=== PATIENT | female | born 1945 | race African-American/Black ===

== ENCOUNTER 2018-08-10 18:42 | Inpatient (IN) | payer MEDICARE ==
[~2018-08-10 18:42] MED LIST: ISOVUE-370 76%-LOCM 1 ML ONE
[2018-08-10] MEDS ORDERED: Lidocaine Viscous Sol 2% 15 ml UD Cup ONE (19:50)
[2018-08-10] MEDS ORDERED: Benzocaine 20% Spray 60 ML CAN ONE (19:50)
[2018-08-10] MEDS ORDERED: Lidocaine 2% PF 5 ML VIAL ONE (19:50)
[2018-08-10] MEDS ORDERED: Lidocaine 1% (PF) 30 ML VIAL ONE (19:51)
[2018-08-10 19:52] LABS: Hemoglobin 12.2 g/dL (12.0-16.0); Mean Corpuscular HGB CONC 33.1 g/dL (32.0-36.0); Mean Corpuscular Hemoglobin 31.3 pg (27.0-31.0); Mean Corpuscular Volume 94.6 fL (78.0-98.0); Mean Platelet Volume 8.2 fL (7.4-10.4); Platelet Count 266 thou/uL (130-400); RBC Distribution Width 12.3 % (11.5-14.5); Red Blood Cell (RBC) Count 3.91 mill/uL (4.20-5.40); White Blood Cell (WBC) Count 6.4 thou/uL (4.8-10.8)
[2018-08-10 19:59] LABS: ALT (SGPT) 37 U/L (8-55); AST (SGOT) 25 U/L (5-34); Albumin 3.8 g/dL (3.4-4.8); Alkaline Phosphatase 102 U/L (40-150); Anion Gap 13 mmol/L (10-20); BUN (Urea Nitrogen) 15 mg/dL (9.8-20.1); Bilirubin, Total 0.5 mg/dL (0.2-1.2); CK (CPK) 43 U/L (29-168); Calc. Creatinine Clearance 0 mL/min (70-130); Calcium 10.9 mg/dL (7.8-10.44); Carbon Dioxide 19 mmol/L (23-31); Chloride 108 mmol/L (98-107); Estimated GFR-MDRD 55; Globulin 4.4 g/dL (2.4-3.5); Glucose 350 mg/dL (83-110); Potassium 4.4 mmol/L (3.5-5.1); Protein, Total 8.2 g/dL (6.0-8.3); Sodium 136 mmol/L (136-145)
[2018-08-10 20:02] LABS: Eosinophils 1 % (0-10); Lymphocytes 43 % (21-51); MDiff Complete? YES; Monocytes 3 % (0-10); Neutrophil 50 % (42-75); PLT Morphology Comment Appears Adequate; RBC Morphology Normal
[2018-08-10 20:03] LABS: CKMB 1.1 ng/mL (0-6.6); Troponin I 0.012 ng/mL (< 0.028)
--- NOTE | 2018-08-10 20:26 | RAD ---
PORTABLE AP CHEST X-RAY 08/10/18 HISTORY: Cough and shortness of breath worse at night. Dyspnea. Patient unable to lie flat. COMPARISON: 07/29/18. FINDINGS: The cardiac silhouette is magnified by projection, but stable in size. Parenchymal changes in left joesy ng base have improved from prior study which may be related to resolution of atelectasis or infiltrat e. There is slight blunting of the right lateral costophrenic angle suggesting a tiny right pleural e ffusion; however, there is mild patchy increased density at the lateral right lung base which could b e related to either atelectasis or developing pneumonia. The lungs are otherwise clear. Vascular calc ifications seen in the thoracic aorta. No other interval change. IMPRESSION: Small right pleural effusion with patchy density lateral right lung base which could be related to ei ther atelectasis or developing pneumonia. Followup PA and lateral chest x-ray is recommended. POS: [facility]
[2018-08-10] MEDS ORDERED: Furosemide 40 MG/4 ML VIAL ONE (20:37)
--- NOTE | 2018-08-10 21:42 | CT ---
CT ANGIOGRAM THORAX WITH IV CONTRAST AND 3D RECONSTRUCTIONS: 08/10/18 HISTORY: Chest pain and shortness of breath, cough. COMPARISON: None available. FINDINGS: No filling defects are seen in the pulmonary arteries to suggest a pulmonary embolus. Thoracic aorta is normal in caliber without evidence of an aortic dissection. Minimal vascular calcif ications are present. The heart is mildly enlarged. There is a moderate right and small left pleural effusions with associated passive atelectasis. The mild ground glass densities are seen in the lungs bilaterally, but this is obtained in expiratory pha se of imaging and findings are likely related to atelectasis. There is a hypodense lesion seen in the mid portion of the left kidney measuring 2.4 cm and demonstra polina fluid attenuation likely represents a cyst. There is a 1.1 cm fluid density exophytic lesion at t he superior pole left kidney. Remainder of the upper abdomen has a normal CT appearance. IMPRESSION: 1. Moderate right and small left pleural effusions with atelectasis seen bilaterally. 2. No CT evidence of a pulmonary embolus. 3. Mild cardiomegaly. 4. Left renal cyst. 5. Colonic diverticulosis involving the hepatic flexure. POS: [facility]
[2018-08-10 23:56] LABS: Troponin I 0.011 ng/mL (< 0.028)
[2018-08-10 23:58] VITALS: BMI 34.2
[2018-08-11] MEDS ORDERED: Dextrose 50% Abboject 50 ML SYRINGE SLOW IVP PRN (00:01)
[2018-08-11] MEDS ORDERED: Artificial Tears 18 DROP/0.9 ML EA EYE PRN (00:01)
[2018-08-11] MEDS ORDERED: Eucerin (Mineral Oil/Petrolatum,White) 30 gm Jar TOP PRN (00:01)
[2018-08-11] MEDS ORDERED: Senokot S 8.6-50 MG TAB PO PRN (00:01)
[2018-08-11] MEDS ORDERED: hydrALAZINE 20 MG/ML VIAL SLOW IVP PRN (00:01)
[2018-08-11] MEDS ORDERED: Loperamide HCl 2 MG CAP PO PRN (00:01)
[2018-08-11] MEDS ORDERED: Calcium Carbonate 500 MG ChewTAB PO PRN (00:01)
[2018-08-11] MEDS ORDERED: Bisacodyl 10 MG SUPP PR PRN (00:01)
[2018-08-11] MEDS ORDERED: Dextrose 5% in Water 1,000 ML IV PRN (00:01)
[2018-08-11] MEDS ORDERED: Ondansetron PF 4 MG/2 ML Vial IVP PRN (00:01)
[2018-08-11] MEDS ORDERED: Diabetic Tussin 200 MG/10 ML UDCUP PO PRN (00:01)
[2018-08-11] MEDS ORDERED: Acetaminophen 325 MG TAB PO PRN (00:01)
[2018-08-11] MEDS ORDERED: HYDROcodone/Acetaminophen 5/325 mg Tablet PO PRN (00:01)
[2018-08-11] MEDS ORDERED: HumaLOG 300 UNITS/3 ML VIAL SC PRN (00:01)
[2018-08-11] MEDS ORDERED: Ondansetron ODT 4 MG TAB PO PRN (00:01)
[2018-08-11] MEDS ORDERED: Zolpidem Tartrate 5 MG TAB PO PRN (00:01)
--- NOTE | 2018-08-11 01:36 | HP ---
PRIMARY CARE PHYSICIAN: [facility]. DATE OF SERVICE: 08/10/2018 REASON FOR ADMISSION: New-onset congestive heart failure, suspecting systolic. HISTORY OF PRESENT ILLNESS: A 73-year-old -[place] female who has underlying history of diab etes type 2 and hypertension, who presented to emergency room for evaluation of increasing shortness of breath. Patient does have shortness of breath on exertion. She does report orthopnea. Patient f eels comfortable in sitting up position. She does not give any classic history of PND. She denies a ny lower extremity edema, but patient reports that after walking a few distance, she gets out of kenia th which is pretty much new. She denies any palpitations, syncope. She does report vague chest disc omfort and tightness with exertion. She denies any fever or chills. She denies any upper or lower r espiratory infections. She denies any viral infection. She denies any NSAID abuse. She denies any weight gain. She denies any weight loss. She denies any thyroid related problems. As patient's symptoms was getting worse and that is what she was concerned about and decided to come to emergency room for evaluation. In the emergency room, patient had elevated D-dimer and that is why CT angiography was done, which wa s negative for pulmonary embolism. Her chest x-ray did show pleural effusion and atelectasis, cardio megaly. Patient routine blood tests showed elevated BNP. Patient was admitted to telemetry floor fo r new-onset congestive heart failure. Patient denies any UTI symptoms. She denies any constipation, diarrhea, melena, hematochezia. She d enies any headaches. She denies any focal motor symptoms. Patient denies any previous history of he art-related problem. REVIEW OF SYSTEMS: Please see my HPI for pertinent positive and negative. All other review of syste ms reviewed and negative except as mentioned in the HPI: Constitutional: Weight loss or gain, abili ty to conduct usual activities. Skin: Rash, itching. Eyes: Double vision, pain. ENT/Mouth: Nose bleeding, neck stiffness, pain, tenderness. Cardiovascular: Palpitations, dyspnea on exertion, ort hopnea. Respiratory: Shortness of breath, wheezing, cough, hemoptysis, fever, or night sweats. Gas trointestinal: Poor appetite, abdominal pain, heartburn, nausea, vomiting, constipation, or diarrhea . Genitourinary: Urgency, frequency, dysuria, nocturia. Musculoskeletal: Pain, swelling. Neurolo gic/Psychiatric: Anxiety, depression. Allergy/Immunologic: Skin rash, bleeding tendency. ALLERGIES: No known drug allergy. CURRENT HOME MEDICATIONS: Glipizide 5 mg p.o. twice daily, amlodipine 5 mg p.o. daily. PAST MEDICAL HISTORY: Diabetes type 2, hypertension. PAST SURGICAL HISTORY: . PAST PSYCHIATRIC HISTORY: Reviewed and negative. SOCIAL HISTORY: Patient is and lives at home in [place]. No history of tobacco, alcohol, o r illicit drug abuse. FAMILY HISTORY: Patient denies any family history of coronary artery disease, stroke, or cancer. Sh e denies any family history of congestive heart failure. EMERGENCY ROOM COURSE: Patient is given Lasix 40 mg. PHYSICAL EXAMINATION: VITAL SIGNS: On arrival, blood pressure 163/105, pulse 115, respiratory rate 18, temperature 98.6, s aturation 96% on room air, weight 82.1 kilograms. GENERAL: Patient is currently alert, awake, no obvious acute distress. HEENT: Head, normocephalic, atraumatic. Eyes: Pupils round, reactive to light. Extraocular muscle intact. ENT: Oropharynx within normal limits. Moist mucous membranes, no oral lesion, no pharynge al erythema, no exudate. NECK: Supple, no JVD, no thyromegaly, no carotid bruit. LUNGS: Bibasilar air entry reduced. Few basal rales noted. No accessory muscles of respiration in use. No wheeze, no rhonchi. CARDIAC: S1, S2 regular. No murmur, no gallop, no rub. ABDOMEN: Soft, bowel sounds present, nontender, nondistended. No organomegaly, no mass, no suprapub ic tenderness. BACK: Unremarkable, no CVA tenderness. EXTREMITIES: Upper extremity passive movement of all joints are normal. Lower extremities: No channing a. Good peripheral pulsation, no calf tenderness. SKIN: No skin rash. HEMATOLOGICAL: No lymphadenopathy. PSYCHIATRIC: Normal affect. SIGNIFICANT LABORATORY DATA: EKG showing sinus tachycardia, left bundle branch block pattern. Chest x-ray: Cardiomegaly a pleural effusion with atelectasis. CT angio, no evidence of pulmonary emboli sm, moderate right and small left pleural effusion with atelectasis. CBC: WBC 6.4, hemoglobin 12.2, platelet 266. D-dimer is 1.01. BMP: Sodium 136, potassium 4.4, chloride 108, carbon dioxide 19, B UN 15, creatinine 1.16, glucose 350, calcium 10.9, magnesium 2.0. LFT: AST 25, ALT 37, alkaline rowena sphatase was 102, albumin 3.8, CK 43, CK-MB 1.1, troponin I 0.012 and then 0.011. BNP 515.1. ASSESSMENT AND PLAN: 1. New onset congestive heart failure, acute suspecting systolic given left bundle branch block. Pa tient will require echocardiography to assess ejection fraction and other structural abnormality. We will start Coreg 3.125 mg p.o. b.i.d., Lasix 40 mg IV b.i.d. We will discontinue amlodipine and ins tead start lisinopril 2.5 mg p.o. daily. Further decision will make after diuresis and echocardiogra phic finding. Cardiology will be consulted. 2. Chest pain, patient has diabetes. She is female. Her presentation could be angina equivalent as sociated with the congestive heart failure. At this point, EKG is left bundle branch block whe ther it is new or old, but patient has negative cardiac enzymes. We will monitor on telemetry floor. We will obtain cardiology consultation. This patient may need stress test once patient is stabiliz ed from congestive heart failure before discharge. Meanwhile, we will continue with aspirin 325 mg p .o. daily. We will check lipid profile tomorrow morning for risk stratification and we will start Li pitor 10 mg p.o. at bedtime. 3. Diabetes type 2, not well controlled. We will continue with insulin as per aggressive sliding sc mariana and we will resume patient's glipizide 10 mg p.o. daily. 4. Hypertension. At this point, because congestive heart failure is the diagnosis and that is why w e are starting lisinopril 2.5 mg p.o. daily, Coreg 3.125 mg p.o. b.i.d., and Lasix and we will monito r blood pressure and titrate medication as needed. 5. Chronic kidney disease, stage 3. We will monitor renal function. Avoid nephrotoxin agents. Rep lace electrolytes as needed basis. 6. Obesity with BMI 34. Dietary reeducation given, weight loss education given. Healthy lifestyle measures discussed with the patient. 7. Deep venous thrombosis prophylaxis. Lovenox 40 mg subcutaneous daily. 8. Gastrointestinal prophylaxis, Pepcid 20 mg p.o. b.i.d. 9. Code status: Patient is FULL CODE. Patient's is surrogate decision maker. Disposition plan based on clinical course. We are expecting patient's stay in hospital more than 2 m idnights. This patient will benefit from a stress test before discharge.
[2018-08-11 01:52] LABS: #Basophils 0.1 thou/uL (0.0-0.2); #Eosinphils 0.1 thou/uL (0.0-0.7); #Monocytes 0.4 thou/uL (0.11-0.59); %Basophils 1.2 % (0.0-1.0); %Eosinophils 1.1 % (0.0-10.0); %Lymphocytes 46.3 % (21.0-51.0); %Monocytes 5.8 % (0.0-10.0); %Neutrophils 45.6 % (42.0-75.0); Hemoglobin 12.1 g/dL (12.0-16.0); Mean Corpuscular HGB CONC 32.7 g/dL (32.0-36.0); Mean Corpuscular Hemoglobin 30.4 pg (27.0-31.0); Mean Platelet Volume 7.9 fL (7.4-10.4); Platelet Count 277 thou/uL (130-400); RBC Distribution Width 12.3 % (11.5-14.5); Red Blood Cell (RBC) Count 3.99 mill/uL (4.20-5.40); White Blood Cell (WBC) Count 6.5 thou/uL (4.8-10.8)
[2018-08-11 02:10] LABS: Hemoglobin A1c 9.5 % (4.0-6.0); Troponin I 0.026 ng/mL (< 0.028)
[2018-08-11 02:14] LABS: Anion Gap 13 mmol/L (10-20); BUN (Urea Nitrogen) 15 mg/dL (9.8-20.1); Calc. Creatinine Clearance 50 mL/min (70-130); Calcium 11.3 mg/dL (7.8-10.44); Carbon Dioxide 23 mmol/L (23-31); Cardiac Risk 5.5 (Less than 4.5); Chloride 103 mmol/L (98-107); Cholesterol 235 mg/dl (< 200 Desired); Estimated GFR-MDRD 48; Glucose 378 mg/dL (83-110); HDL Cholesterol 43 mg/dL (>60 Neg Risk); LDL Cholesterol, Calculated 127 mg/dL; Sodium 135 mmol/L (136-145); Triglycerides 327 mg/dL (Less than 150); Uric Acid 7.4 mg/dL (2.6-6.0)
[2018-08-11] MEDS ORDERED: Sodium Chloride 0.9% 10 ML ONE (05:40)
[2018-08-11] MEDS: Furosemide 40 MG/4 ML VIAL SLOW IVP SCH ×3 (05:53→18:32)
[2018-08-11] MEDS ORDERED: Lisinopril 2.5 MG TAB PO SCH ×2 (09:00→21:00)
[2018-08-11] MEDS ORDERED: Aspirin 325 MG TAB PO SCH (09:00)
[2018-08-11] MEDS ORDERED: Carvedilol 3.125 MG TAB PO SCH (09:00)
[2018-08-11] MEDS ORDERED: Iopamidol 370 76% 100 ML VIAL ONE (10:41)
[2018-08-11] MEDS ORDERED: Communication Order-Pharmacy FS SCH (11:00)
[2018-08-11] MEDS: Carvedilol 6.25 MG TAB PO SCH ×2 (11:26→21:32)
[2018-08-11] MEDS ORDERED: Carvedilol 6.25 MG TAB PO SCH (11:30)
--- NOTE | 2018-08-11 11:44 | CON ---
DATE OF CONSULTATION: 08/11/2018 HISTORY: The patient is a 73-year-old woman who presents for evaluation of increasing dyspnea and chest discomfort. The patient has no previous cardiac history. She was in her usual state of health when a few weeks ago she started having dyspnea with minimal exertion. She reported also having orthopnea. The patient also reports having some midsternal chest discomfort that occurs with and without exertion. The patient has several cardiac risk factors including hypertension, diabetes mellitus, and a family history of coronary artery disease. PAST MEDICAL HISTORY: 1. Hypertension. 2. Diabetes mellitus. 3. History of pneumothorax. PAST SURGICAL HISTORY: . SOCIAL HISTORY: Nonsmoker. MEDICATION: Glipizide 10 daily,and Norvasc 5 daily. ALLERGIES: No known drug allergies. FAMILY HISTORY: A strong family history of coronary artery disease. REVIEW OF SYSTEMS: Ten-point system otherwise unremarkable. No history of easy bruising or bleeding, bright red blood per rectum, hematuria. PHYSICAL EXAMINATION: GENERAL: This is a well-developed woman in no acute distress. VITAL SIGNS: Blood pressure was 133/75. NECK: No jugular distention. LUNGS: Few crackles in left base. HEART: Regular rate and rhythm, normal S1, S2, no murmurs. ABDOMEN: Nondistended. EXTREMITIES: Showed trace edema. SKIN: Warm and dry. VASCULAR: Radial pulses are 2+. LABORATORY DATA: Sodium 135, potassium 4.0, chloride 102, bicarbonate 23, BUN 15, creatinine is 1.3, glucose 378. Her white blood cell count is 6.5, hemoglobin 12.1, hematocrit 37.1, platelets 277. EKG revealed normal sinus rhythm, left bundle branch block. IMPRESSION: 1. Congestive heart failure. 2. Chest pain. 3. Left bundle branch block. 4. Hypertension. 5. Diabetes. 6. History of pneumothorax. This patient presents with congestive heart failure. I will check the patient' s echocardiogram. The patient has been started on beta alvino and SHARMILA inhibitor therapy. Further recommendations will follow. [facility]
[2018-08-11] MEDS: Enoxaparin Sodium 40 MG/0.4 ML SYRINGE SC SCH (11:52)
[2018-08-11] MEDS: Famotidine 20 MG TAB PO SCH ×2 (11:53→21:33)
[2018-08-11] MEDS: glipiZIDE 10 MG TAB PO SCH (11:53)
[2018-08-11] MEDS ORDERED: Lidocaine 1% (PF) 30 ML VIAL ONE (12:28)
[2018-08-11] MEDS ORDERED: Midazolam HCl 2 mg/2 ml Vial ONE (13:06)
[2018-08-11] MEDS ORDERED: traMADol HCl 50 MG TAB PO PRN (13:29)
[2018-08-11] MEDS ORDERED: Nitroglycerin 0.4 MG TAB (25 Tab Bottle) SL PRN (13:29)
[2018-08-11] MEDS ORDERED: Acetaminophen/Codeine 30-300mg Tablet PO PRN ×2 (13:29)
[2018-08-11] MEDS ORDERED: Sodium Chloride 0.9% 200 ML IV SCH (13:30)
--- NOTE | 2018-08-11 13:56 | PDOC.PN ---
- Subjective Encounter Start Date: 08/11/18 Encounter Start Time: 10:30 Subjective: pt up in bed no complains - Objective Resuscitation Status: Resuscitation Status FULL:Full Resuscitation Vital Signs & Weight: Vital Signs (12 hours) Temp Pulse Resp BP BP BP BP 08/11/18 11:53 107 H 157/92 H 08/11/18 11:28 97.4 F L 107 H 16 157/92 H 157/92 H 08/11/18 08:05 98.5 F 104 H 16 139/63 08/11/18 08:00 08/11/18 05:52 110 H 16 133/75 08/11/18 03:28 98.1 F 110 H 18 134/82 146/85 H 157/87 H Pulse Ox 08/11/18 11:53 08/11/18 11:28 93 L 08/11/18 08:05 94 L 08/11/18 08:00 94 L 08/11/18 05:52 08/11/18 03:28 93 L Weight Weight 183 lb 1.6 oz I&O: 08/10/18 08/11/18 08/12/18 06:59 06:59 06:59 Intake Total 734 Output Total 700 Balance 34 Result Diagrams: 08/11/18 01:39 08/11/18 01:39 Additional Labs: Accuchecks 08/11/18 08/11/18 11:09 05:54 POC Glucose 255 H 289 H Phys Exam - Physical Examination Neck: no nodes, no JVD, supple, full ROM Respiratory: no wheezing, no rales, no rhonchi, wheezing present, clear to auscultation bilateral Cardiovascular: RRR, no significant murmur, no rub, gallop, irregular Gastrointestinal: soft, non-tender, no distention, positive bowel sounds Dx/Plan (1) Acute systolic heart failure Code(s): I50.21 - ACUTE SYSTOLIC (CONGESTIVE) HEART FAILURE Status: Acute (2) SOB (shortness of breath) Code(s): R06.02 - SHORTNESS OF BREATH Status: Acute (3) Low vitamin D level Code(s): R79.89 - OTHER SPECIFIED ABNORMAL FINDINGS OF BLOOD CHEMISTRY Status : Acute (4) Diabetes Code(s): E11.9 - TYPE 2 DIABETES MELLITUS WITHOUT COMPLICATIONS Status: Acute - Plan pt had cath no blockage -: will titrate bp meds to keep bp down -: pt will need insulin her hbg alc is 9.5 * . Review of Systems - Review of Systems Respiratory: negative: Cough, Dry, Shortness of Breath, Hemoptysis, SOB with Excertion, Pleuritic Pain, Sputum, Wheezing Cardiovascular: negative: chest pain, palpitations, orthopnea, paroxysmal nocturnal dyspnea, edema, light headedness, other Gastrointestinal: negative: Nausea, Vomiting, Abdominal Pain, Diarrhea, Constipation, Melena, Hematochezia, Other - Medications/Allergies Allergies/Adverse Reactions: Allergies Allergy/AdvReac Type Severity Reaction Status Date / Time No Known Allergies Allergy Unverified 08/10/18 23:35 Medications: Current Medications Acetaminophen (Tylenol) 650 mg PO Q4H PRN PRN Reason: Headache/Fever/Mild Pain (1-3) Acetaminophen/Codeine Phosphate (Tylenol #3) 1 tab PO Q4H PRN PRN Reason: Mild Pain (1-3) Acetaminophen/Codeine Phosphate (Tylenol #3) 2 tab PO Q4H PRN PRN Reason: Moderate Pain (4-6) Hydrocodone Bitart/Acetaminophen ([place] 5/325) 1 tab PO Q4H PRN PRN Reason: Moderate Pain (4-6) Albuterol/Ipratropium (Duoneb) 3 ml NEB Q6H PRN PRN Reason: SOB &/or Wheezing Artificial Tears (Tears Naturale) 2 drop EA EYE PRN PRN PRN Reason: Dry Eyes Atorvastatin Calcium (Lipitor) 80 mg PO HS [facility] Bisacodyl (Dulcolax) 10 mg [place] DAILYPRN PRN PRN Reason: Constipation Calcium Carbonate (Tums) 1,000 mg PO Q4H PRN PRN Reason: Heartburn or Indigestion Carvedilol (Coreg) 6.25 mg PO BID [facility] Cholecalciferol (Vitamin D3) 1,000 units PO DAILY [facility] Dextrose/Water (Dextrose 50%) 25 gm SLOW IVP PRN PRN PRN Reason: Hypoglycemia Enoxaparin Sodium (Lovenox) 40 mg SC 0900 [facility] Last Admin: 08/11/18 11:52 Dose: Not Given Famotidine (Pepcid) 20 mg PO BID [facility] Last Admin: 08/11/18 11:53 Dose: Not Given Furosemide (Lasix) 40 mg SLOW IVP 0600,1400 [facility] Last Admin: 08/11/18 05:53 Dose: 40 mg Glipizide (Glucotrol) 10 mg PO DAILY [facility] Last Admin: 08/11/18 11:53 Dose: Not Given Glucagon (Glucagon) 1 mg IM PRN PRN PRN Reason: Hypoglycemia Guaifenesin (Robitussin Sf) 200 mg PO Q4H PRN PRN Reason: Cough Hydralazine HCl (Apresoline) 10 mg SLOW IVP Q4H PRN PRN Reason: SBP > 180 and HR < 70 Dextrose/Water (D5w) 1,000 mls @ 0 mls/hr IV .Q0M PRN PRN Reason: Hypoglycemia Insulin Glargine 5 units/ (Miscellaneous Medication) 0.05 mls @ 0 mls/hr SC QAM [facility] Sodium Chloride (Normal Saline 0.9%) 200 mls @ 0 mls/hr IV ONE [facility] Stop: 08/11/18 15:00 Insulin Human Lispro (Humalog) 0 units SC .AGGRESSIVE SLIDING PRN PRN Reason: Aggressive Correctional Scale Insulin Human Lispro (Humalog) 0 units SC .BEDTIME SLIDING SC PRN PRN Reason: Bedtime Correctional Scale Loperamide HCl (Imodium) 2 mg PO PRN PRN PRN Reason: Diarrhea/Loose Stools Mineral Oil/White Petrolatum (Eucerin Cream) 0 gm TOP BIDPRN PRN PRN Reason: Dry Skin Miscellaneous Information (Communication Order-Pharmacy) 0 each FS ONE [facility] Stop: 08/11/18 21:00 Nitroglycerin (Nitrostat) 0.4 mg SL Q5MIN PRN PRN Reason: Chest Pain Ondansetron HCl (Zofran Odt) 4 mg PO Q6H PRN PRN Reason: Nausea/Vomiting Ondansetron HCl (Zofran) 4 mg IVP Q6H PRN PRN Reason: Nausea/Vomiting Sacubitril/Valsartan (Entresto 24.5 Mg-25.5 Mg Tablet) 1 tab PO BID [facility] Senna/Docusate Sodium (Senokot S) 2 tab PO BIDPRN PRN PRN Reason: Constipation Sodium Chloride (Flush - Normal Saline) 10 ml IVF Q12HR SILVESTRE Sodium Chloride (Flush - Normal Saline) 10 ml IVF PRN PRN PRN Reason: Saline Flush Tramadol HCl (Ultram) 50 mg PO Q6H PRN PRN Reason: Moderate Pain (4-6) Zolpidem Tartrate (Ambien) 5 mg PO HSPRN PRN PRN Reason: Insomnia
[2018-08-11] MEDS: HumaLOG 300 UNITS/3 ML VIAL SC PRN (18:32)
[2018-08-11] MEDS ORDERED: Atorvastatin Calcium 40 MG TAB PO SCH (21:00)
[2018-08-11] MEDS ORDERED: Atorvastatin Calcium 10 MG TAB PO SCH (21:00)
[2018-08-11] MEDS ORDERED: Carvedilol 25 MG TAB PO SCH ×2 (21:00)
[2018-08-12 06:07] LABS: Anion Gap 11 mmol/L (10-20); BUN (Urea Nitrogen) 16 mg/dL (9.8-20.1); Calc. Creatinine Clearance 68 mL/min (70-130); Calcium 10.7 mg/dL (7.8-10.44); Carbon Dioxide 26 mmol/L (23-31); Chloride 107 mmol/L (98-107); Estimated GFR-MDRD 68; Glucose 211 mg/dL (83-110); Potassium 3.7 mmol/L (3.5-5.1); Sodium 140 mmol/L (136-145)
[2018-08-12] MEDS: Furosemide 40 MG/4 ML VIAL SLOW IVP SCH (06:23)
[2018-08-12] MEDS ORDERED: Insulin Glargine 5 UNITS in Pre-Filled Syringe 1 EACH SC SCH ×2 (09:00→21:00)
[2018-08-12] MEDS: Carvedilol 6.25 MG TAB PO SCH ×2 (09:08→20:40)
[2018-08-12] MEDS: Furosemide 20 MG TAB PO SCH (09:10)
[2018-08-12] MEDS: glipiZIDE 10 MG TAB PO SCH (09:10)
[2018-08-12] MEDS: Famotidine 20 MG TAB PO SCH ×2 (09:10→20:41)
[2018-08-12] MEDS: HumaLOG 300 UNITS/3 ML VIAL SC PRN ×2 (09:11→12:04)
[2018-08-12] MEDS: Enoxaparin Sodium 40 MG/0.4 ML SYRINGE SC SCH (10:57)
--- NOTE | 2018-08-12 14:33 | PDOC.PN ---
- Subjective Encounter Start Date: 08/12/18 Encounter Start Time: 11:15 Subjective: pt up in bed no complains - Objective Resuscitation Status: Resuscitation Status FULL:Full Resuscitation Vital Signs & Weight: Vital Signs (12 hours) Temp Pulse Resp BP BP BP BP 08/12/18 11:05 97.6 F 99 16 08/12/18 09:08 112/71 08/12/18 07:55 97.6 F 92 16 112/71 08/12/18 06:17 99 16 127/67 125/69 08/12/18 03:19 97.7 F 100 18 128/73 BP Pulse Ox 08/12/18 11:05 113/64 100 08/12/18 09:08 08/12/18 07:55 95 08/12/18 06:17 117/59 L 08/12/18 03:19 93 L Weight Weight 181 lb I&O: 08/11/18 08/12/18 08/13/18 06:59 06:59 06:59 Intake Total 734 731 Output Total 700 1650 Balance 34 -919 Result Diagrams: 08/11/18 01:39 08/12/18 05:22 Additional Labs: Accuchecks 08/12/18 08/12/18 08/11/18 10:38 06:04 21:03 POC Glucose 360 H 219 H 190 H 08/11/18 17:16 POC Glucose 389 H Phys Exam - Physical Examination Neck: no nodes, no JVD, supple, full ROM Respiratory: no wheezing, no rales, no rhonchi, wheezing present, clear to auscultation bilateral Cardiovascular: RRR, no significant murmur, no rub, gallop, irregular Gastrointestinal: soft, non-tender, no distention, positive bowel sounds Musculoskeletal: no edema, pulses present, edema present Dx/Plan (1) Acute systolic heart failure Code(s): I50.21 - ACUTE SYSTOLIC (CONGESTIVE) HEART FAILURE Status: Acute (2) SOB (shortness of breath) Code(s): R06.02 - SHORTNESS OF BREATH Status: Acute (3) Low vitamin D level Code(s): R79.89 - OTHER SPECIFIED ABNORMAL FINDINGS OF BLOOD CHEMISTRY Status : Acute (4) Diabetes Code(s): E11.9 - TYPE 2 DIABETES MELLITUS WITHOUT COMPLICATIONS Status: Acute - Plan pt up in bed feels tired today -: tsh normal -: will conitnue vit D, vit d level low and pt is hypercalcemia * . Review of Systems - Review of Systems Respiratory: negative: Cough, Dry, Shortness of Breath, Hemoptysis, SOB with Excertion, Pleuritic Pain, Sputum, Wheezing Cardiovascular: negative: chest pain, palpitations, orthopnea, paroxysmal nocturnal dyspnea, edema, light headedness, other Gastrointestinal: negative: Nausea, Vomiting, Abdominal Pain, Diarrhea, Constipation, Melena, Hematochezia, Other Genitourinary: negative: Dysuria, Frequency, Incontinence, Hematuria, Retention , Other - Medications/Allergies Allergies/Adverse Reactions: Allergies Allergy/AdvReac Type Severity Reaction Status Date / Time No Known Allergies Allergy Unverified 08/10/18 23:35 Medications: Current Medications Acetaminophen (Tylenol) 650 mg PO Q4H PRN PRN Reason: Headache/Fever/Mild Pain (1-3) Acetaminophen/Codeine Phosphate (Tylenol #3) 1 tab PO Q4H PRN PRN Reason: Mild Pain (1-3) Acetaminophen/Codeine Phosphate (Tylenol #3) 2 tab PO Q4H PRN PRN Reason: Moderate Pain (4-6) Hydrocodone Bitart/Acetaminophen ([place] 5/325) 1 tab PO Q4H PRN PRN Reason: Moderate Pain (4-6) Albuterol/Ipratropium (Duoneb) 3 ml NEB Q6H PRN PRN Reason: SOB &/or Wheezing Artificial Tears (Tears Naturale) 2 drop EA EYE PRN PRN PRN Reason: Dry Eyes Bisacodyl (Dulcolax) 10 mg [place] DAILYPRN PRN PRN Reason: Constipation Calcium Carbonate (Tums) 1,000 mg PO Q4H PRN PRN Reason: Heartburn or Indigestion Carvedilol (Coreg) 6.25 mg PO BID [facility] Last Admin: 08/12/18 09:08 Dose: 6.25 mg Cholecalciferol (Vitamin D3) 1,000 units PO DAILY [facility] Last Admin: 08/12/18 09:07 Dose: 1,000 units Dextrose/Water (Dextrose 50%) 25 gm SLOW IVP PRN PRN PRN Reason: Hypoglycemia Enoxaparin Sodium (Lovenox) 40 mg SC 0900 [facility] Last Admin: 08/12/18 10:57 Dose: 40 mg Famotidine (Pepcid) 20 mg PO BID [facility] Last Admin: 08/12/18 09:10 Dose: 20 mg Furosemide (Lasix) 20 mg PO DAILY [facility] Last Admin: 08/12/18 09:10 Dose: 20 mg Glipizide (Glucotrol) 10 mg PO DAILY [facility] Last Admin: 08/12/18 09:10 Dose: 10 mg Glucagon (Glucagon) 1 mg IM PRN PRN PRN Reason: Hypoglycemia Guaifenesin (Robitussin Sf) 200 mg PO Q4H PRN PRN Reason: Cough Hydralazine HCl (Apresoline) 10 mg SLOW IVP Q4H PRN PRN Reason: SBP > 180 and HR < 70 Dextrose/Water (D5w) 1,000 mls @ 0 mls/hr IV .Q0M PRN PRN Reason: Hypoglycemia Insulin Glargine 8 units/ (Miscellaneous Medication) 0.08 mls @ 0 mls/hr SC HS [facility] Insulin Glargine 8 units/ (Miscellaneous Medication) 0.08 mls @ 0 mls/hr SC QAM [facility] Insulin Human Lispro (Humalog) 0 units SC .AGGRESSIVE SLIDING PRN PRN Reason: Aggressive Correctional Scale Last Admin: 08/12/18 12:04 Dose: 13 unit Insulin Human Lispro (Humalog) 0 units SC .BEDTIME SLIDING SC PRN PRN Reason: Bedtime Correctional Scale Loperamide HCl (Imodium) 2 mg PO PRN PRN PRN Reason: Diarrhea/Loose Stools Mineral Oil/White Petrolatum (Eucerin Cream) 0 gm TOP BIDPRN PRN PRN Reason: Dry Skin Nitroglycerin (Nitrostat) 0.4 mg SL Q5MIN PRN PRN Reason: Chest Pain Ondansetron HCl (Zofran Odt) 4 mg PO Q6H PRN PRN Reason: Nausea/Vomiting Ondansetron HCl (Zofran) 4 mg IVP Q6H PRN PRN Reason: Nausea/Vomiting Sacubitril/Valsartan (Entresto 24.5 Mg-25.5 Mg Tablet) 1 tab PO BID [facility] Senna/Docusate Sodium (Senokot S) 2 tab PO BIDPRN PRN PRN Reason: Constipation Sodium Chloride (Flush - Normal Saline) 10 ml IVF Q12HR [facility] Last Admin: 08/12/18 10:59 Dose: 10 ml Sodium Chloride (Flush - Normal Saline) 10 ml IVF PRN PRN PRN Reason: Saline Flush Last Admin: 08/12/18 06:23 Dose: 10 ml Tramadol HCl (Ultram) 50 mg PO Q6H PRN PRN Reason: Moderate Pain (4-6) Zolpidem Tartrate (Ambien) 5 mg PO HSPRN PRN PRN Reason: Insomnia
[2018-08-12] MEDS ORDERED: Insulin Glargine 8 UNITS in Pre-Filled Syringe 1 EACH SC SCH (21:00)
[2018-08-13 07:02] LABS: Anion Gap 13 mmol/L (10-20); BUN (Urea Nitrogen) 25 mg/dL (9.8-20.1); Calc. Creatinine Clearance 62 mL/min (70-130); Calcium 10.9 mg/dL (7.8-10.44); Carbon Dioxide 22 mmol/L (23-31); Chloride 106 mmol/L (98-107); Estimated GFR-MDRD 62; Glucose 230 mg/dL (83-110); Potassium 3.8 mmol/L (3.5-5.1); Sodium 137 mmol/L (136-145)
[2018-08-13] MEDS: Carvedilol 6.25 MG TAB PO SCH (08:35)
[2018-08-13] MEDS: glipiZIDE 10 MG TAB PO SCH (08:35)
[2018-08-13] MEDS: Famotidine 20 MG TAB PO SCH (08:35)
[2018-08-13] MEDS: Furosemide 20 MG TAB PO SCH (08:35)
[2018-08-13] MEDS: HumaLOG 300 UNITS/3 ML VIAL SC PRN ×2 (08:36→12:18)
[2018-08-13] MEDS ORDERED: Insulin Glargine 8 UNITS in Pre-Filled Syringe 1 EACH SC SCH (09:00)
[2018-08-13] MEDS ORDERED: Insulin Glargine 5 UNITS in Pre-Filled Syringe 1 EACH SC SCH (09:00)
[2018-08-13] MEDS ORDERED: Sacubitril 24.5 MG/Valsartan 25.5 MG TABLET PO SCH (09:00)
[2018-08-13] MEDS: Enoxaparin Sodium 40 MG/0.4 ML SYRINGE SC SCH (10:06)
[2018-08-13 16:07] VITALS: TEMP 97.8
[2018-08-13 17:50] VITALS: BP 116/62
--- NOTE | 2018-08-13 21:57 | DIS ---
DATE OF ADMISSION: 08/11/2018 DATE OF DISCHARGE: 08/13/2018 DISCHARGE DIAGNOSES: 1. Acute systolic heart failure, new onset. 2. Shortness of breath. 3. Low vitamin D level. 4. Diabetes. 5. Hypercalcemia. HOSPITAL COURSE: The patient is a very pleasant 73-year-old female who initially presented to the [facility] with shortness of breath. She did undergo initially a CT thorax, which did not indicate any P E, but however indicated some mild cardiomegaly and small left pleural effusion. The patient at this time was seen by Cardiology. She underwent a catheterization, which did not indicate any stenosis. No intervention was done. The patient did have an echocardiogram, which indicated an EF of 15%-28%. Diagnosis was nonischemic cardiomyopathy. The patient was put on heart failure medications. She a lso told me that she has not been very compliant with her diabetes medication. Her hemoglobin A1c wa s high. Hemoglobin A1c was 9.8. MEDICATIONS: Her home medications will be the following: Norvasc 5 mg daily, glipizide 10 mg b.i.d. , mg b.i.d., Lasix 20 mg daily, vitamin D3 1000 units daily, Coreg 6.25 b.i.d., and atorvastati n 20 mg daily. The patient will be ordered some home health. Also, I have talked with the patient's son to make yamini e the patient takes her home medication. She will follow up with Cardiology in 2-3 weeks. PHYSICAL EXAMINATION: VITAL SIGNS: 97.9, 89, 16, 93% on room air, and she has 106/61 blood pressure. GENERAL: She is awake, alert, oriented x3, does not appear in distress. CARDIOVASCULAR: S1, S2 present. No murmurs, rubs, or gallops. ABDOMEN: Soft, nontender. Bowel sounds are present x2. EXTREMITIES: No edema. Again, she will be discharged home. She will follow up with her primary care doctor. She did have h ypercalcemia. Her vitamin D level was 13, so most likely secondary to low vitamin D. She needs that followed up also as an outpatient.
--- NOTE | 2018-08-14 13:27 | EKG ---
Test Reason : Blood Pressure : / mmHG Vent. Rate : 111 BPM Atrial Rate : 111 BPM P-R Int : 122 ms QRS Dur : 134 ms QT Int : 376 ms P-R-T Axes : 053 017 046 degrees QTc Int : 511 ms Sinus tachycardia Left bundle branch block Abnormal ECG Confirmed by MILI FLORES ([id number]), non linear editor STEVE GARCIA ([id number]) on 08/14/2018 1:27:30 PM Referred By: Confirmed By:MILI FLORES
== END 2018-08-13 16:45 | disposition home health service (06) | DRG 286 ==
LOC: ERS 18:42 → 2NO 23:09
PROVIDERS: ADMIT Internal Medicine; ATTEND Internal Medicine
PROC: 4A023N7 Measurement of Cardiac Sampling and Pressure, Left Heart, Percutaneous Approach (ICD-10-PCS; principal; 2018-08-11)
PROC: B2111ZZ Fluoroscopy of Multiple Coronary Arteries using Low Osmolar Contrast (ICD-10-PCS; 2018-08-11)
PROC: B2151ZZ Fluoroscopy of Left Heart using Low Osmolar Contrast (ICD-10-PCS; 2018-08-11)
DX: I13.0 Hypertensive heart and chronic kidney disease with heart failure and stage 1 through stage 4 chronic kidney disease, or unspecified chronic kidney disease (principal); I50.21 Acute systolic (congestive) heart failure; I42.8 Other cardiomyopathies; N18.3 Chronic kidney disease, stage 3 (moderate); Z68.34 Body mass index [BMI] 34.0-34.9, adult; E11.22 Type 2 diabetes mellitus with diabetic chronic kidney disease; Z79.899 Other long term (current) drug therapy; E55.9 Vitamin D deficiency, unspecified; I44.7 Left bundle-branch block, unspecified
CPT/HCPCS: 36415; 36416; 71045; 71275; 80048; 80053; 80061; 82306; 82550; 82553; 83036; 83735; 83880; 83970; 84443; 84484; 84550; 85025; 85379; 93005; 93306; 93458; 93798; 96374; 99152; C1769; J1644; J1650; J1940; J2001; J2250

== ENCOUNTER 2018-08-17 06:15 | Inpatient (IN) | payer MEDICARE ==
[2018-08-17 07:51] LABS: INR-International Normal Ratio 1.1; Prothrombin Time 14.5 SEC (12.0-14.7)
[2018-08-17 08:00] LABS: #Eosinphils 0.1 thou/uL (0.0-0.7); #Lymphocytes 2.5 thou/uL (1.20-3.40); #Monocytes 0.5 thou/uL (0.11-0.59); %Basophils 0.4 % (0.0-1.0); %Eosinophils 0.8 % (0.0-10.0); %Lymphocytes 27.7 % (21.0-51.0); %Monocytes 5.4 % (0.0-10.0); %Neutrophils 65.7 % (42.0-75.0); Hemoglobin 13.2 g/dL (12.0-16.0); Mean Corpuscular HGB CONC 31.7 g/dL (32.0-36.0); Mean Corpuscular Hemoglobin 29.5 pg (27.0-31.0); Mean Corpuscular Volume 93.3 fL (78.0-98.0); Mean Platelet Volume 8.2 fL (7.4-10.4); Platelet Count 306 thou/uL (130-400); RBC Distribution Width 12.4 % (11.5-14.5); Red Blood Cell (RBC) Count 4.46 mill/uL (4.20-5.40); White Blood Cell (WBC) Count 9.1 thou/uL (4.8-10.8)
[2018-08-17 08:00] LABS: CKMB 0.9 ng/mL (0-6.6); Troponin I Less than 0.010 ng/mL (< 0.028)
[2018-08-17 08:05] LABS: ALT (SGPT) 22 U/L (8-55); AST (SGOT) 22 U/L (5-34); Alkaline Phosphatase 86 U/L (40-150); Anion Gap 15 mmol/L (10-20); BUN (Urea Nitrogen) 17 mg/dL (9.8-20.1); Bilirubin, Total 0.7 mg/dL (0.2-1.2); Calc. Creatinine Clearance 0 mL/min (70-130); Calcium 10.9 mg/dL (7.8-10.44); Carbon Dioxide 18 mmol/L (23-31); Chloride 108 mmol/L (98-107); Estimated GFR-MDRD 61; Globulin 4.7 g/dL (2.4-3.5); Glucose 281 mg/dL (83-110); Protein, Total 8.7 g/dL (6.0-8.3); Sodium 136 mmol/L (136-145)
--- NOTE | 2018-08-17 08:12 | CT ---
PRELIMINARY REPORT/[facility]/EMERGENTY AFTER-HOURS PROCEDURE Addendum created by Josh Bach MD on 08/17/2018 7:30 AM Central Time ([place] & [place]) THIS REPORT CONTA INS FINDINGS THAT MAY BE CRITICAL TO PATIENT CARE. The findings were verbally communicated via teleph one conference with KISHORE GROSS at 7:30 AM CDT on 08/17/2018. The findings were acknowledged and u nderstood. Initial Report created on 08/17/2018 7:18 AM Central Time ([place] & [place]) CT Head Without Intravenous Contrast CLINICAL HISTORY: 73 years old, female; Signs and symptoms; Speech disturbance; Slurred speech; Additional info: Jose R sandhu presents for evaluation of motor deficits, slurred speech. Pt was last seen normal at 2200 the nigh t before. TECHNIQUE: Axial computed tomography images of the head/brain without intravenous contrast. COMPARISON: No relevant prior studies available. FINDINGS: Brain: No intracranial hemorrhage. Chronic appearing lacunar infarctions or prominent perivascular sp aces in the bilateral basal ganglia. No evidence of acute infarction. Diffuse cortical volume loss. P atchy white matter hypodensities consistent with chronic small vessel ischemic changes. Ventricles: Concordant prominence of the ventricles relative to the sulci. Bones/joints: No acute fracture. Soft tissues: Normal. Vasculature: Atherosclerosis. Sinuses: Normal as visualized. No acute sinusitis. Mastoid air cells: Normal as visualized. No mastoid effusion. IMPRESSION: No acute intracranial abnormality. Nonacute/incidental findings above. Thank you for allowing us to participate in the care of your patient. Dictated and Authenticated by: Josh Bach MD 08/17/2018 7:18 AM Central Time ([place] & [place]) FINAL REPORT BRAIN CT SCAN WITHOUT IV CONTRAST: EMERGENCY AFTER HOURS EXAM TIME: 7:11 a.m. DATE: 08/17/2018. FINDINGS/IMPRESSION: Chronic white matter ischemic changes are noted. Tiny punctate old lacunar infarcts. POS: H
--- NOTE | 2018-08-17 08:28 | CT ---
CT ANGIO OF HEAD WITH 3D RENDERING CT ANGIO NECK WITH 3D RENDERING: HISTORY: A 73-year-old female with a history of slurred speech and some mild right-sided weakness. FINDINGS: CT ANGIOGRAM HEAD WITH 3D RENDERING: There are some calcified plaques involving the intracranial internal carotids bilaterally with some m ild bilateral stenotic changes, but no evidence for occlusion. No evidence for an M1 occlusion or ot her significant major branch occlusive disease. The middle cerebral arteries appear to be somewhat a t the lower range of normal in size bilaterally and symmetrically. Vertebral arteries are also somew hat decreased in size symmetrically, probably from developmental origin. No evidence for an aneurysm . IMPRESSION: Some atherosclerotic calcific plaques in the intracranial internal carotid arteries without evidence of occlusion. No evidence for major branch occlusion, in particular no evidence for an A1 segment oc clusion. Somewhat small caliber middle cerebral arteries and vertebral arteries bilaterally which ap pears to be developmental. CT ANGIOGRAM NECK WITH 3D RENDERING: The vertebral arteries show some generalized decreased caliber throughout their entirety. There are some calcified plaques at the origins of both right and left internal carotid arteries with mild, les s than 50%, stenotic changes using NASCET criteria. No evidence of neck soft tissue mass or abnormal fluid collection. Cervical spondylosis. IMPRESSION: Somewhat generalized decreased caliber to the vertebral arteries throughout their course. Mild, less than 50% stenotic changes at the origins of both right and left ICAs with associated calcific plaque s. Findings were discussed with Dr. Miller in the ER at approximately 7:38 a.m. CODE LOPEZ POS: [facility]
--- NOTE | 2018-08-17 09:20 | RAD ---
TWO VIEWS CHEST: Comparison: 08-10-18 History: Left sided facial pain. 4th and 5th finger numbness and pain. FINDINGS: Single view of the chest shows a normal sized cardiomediastinal silhouette. There is no evidence of c onsolidation, mass, or pleural effusion. The bones are unremarkable. IMPRESSION: No evidence of acute cardiopulmonary disease. POS: [facility]
[2018-08-17] MEDS ORDERED: hydrALAZINE 20 MG/ML VIAL SLOW IVP PRN (09:38)
[2018-08-17 09:48] LABS: Bilirubin Negative (Negative); Blood, Urine Negative (Negative); Clarity CLEAR (Clear); Glucose, Urine (Dipstick) 500 mg/dL (Negative); Leukocyte Negative (Negative); Nitrite Negative (Negative); Protein, Urine (Dipstick) Negative (Neg-Trace); Specific Gravity, Urine 1.037 (1.002-1.036); Urobilinogen 0.2 mg/dL (0.2-1.0); pH, Urine 6.5 (5.0-9.0)
[2018-08-17] MEDS ORDERED: ISOVUE-370 76%-LOCM 1 ML ONE (09:58)
[2018-08-17] MEDS ORDERED: Ondansetron PF 4 MG/2 ML Vial IVP PRN ×2 (10:25→10:30)
[2018-08-17] MEDS ORDERED: Ondansetron ODT 4 MG TAB PO PRN (10:25)
[2018-08-17] MEDS ORDERED: Acetaminophen 325 MG TAB PO PRN (10:26)
[2018-08-17] MEDS ORDERED: Dextrose 50% Abboject 50 ML SYRINGE SLOW IVP PRN (10:55)
[2018-08-17] MEDS ORDERED: Dextrose 5% in Water 1,000 ML IV PRN (10:55)
[2018-08-17 11:02] LABS: Cardiac Risk 4.3 (Less than 4.5)
[2018-08-17 11:26] VITALS: BMI 33.6
--- NOTE | 2018-08-17 12:22 | HP ---
DATE OF ADMISSION: 08/17/2018 PRIMARY CARE PHYSICIAN: [facility] in [place]. CHIEF COMPLAINT: Headache, slurred speech and weakness. HISTORY OF PRESENT ILLNESS: Ms. Peters is a pleasant 73-year-old female with a past medical history o f systolic heart failure, newly diagnosed. Diabetes type 2, hypertension. She presented to the [facility] room this morning with some complaints of high blood pressure and headache. The headache start ed late last night and she had about 10 minutes of slurred speech and right arm weakness. She states the symptoms of her right arm weakness and slurred speech did in fact resolve; however, the headache lasted throughout the night and into this morning. She states headache pain is currently 5/10 and i s a dull ache on the left side of her head. She had denied any trauma or fall prior to the onset of symptoms. She was recently discharged from the hospital on 08/13/2018, where she was newly diagnosed with systolic heart failure. During that admission, she did undergo echocardiogram which revealed l eft ventricular ejection fraction estimated at 15-20%. She then underwent left heart catheterization which revealed an EF of 15%. No stents or other intervention was done at that time. She was starte d on carvedilol 3.125 twice daily, aspirin, atorvastatin 20 mg daily, and Entresto for her systolic h eart failure. She also was started on Lasix 20 mg which she states she had been frequently going to the bathroom since she was discharged. She had denied any symptoms up until last night when she star atiya to develop a headache. At this time, she had denied any chest pain, shortness of breath or abdom inal pain, she has no symptoms of nausea or vomiting or any other symptoms. In the ED, she was found to be hypertensive with a blood pressure of 168/104 and tachycardic with a pulse of 115; however, sh e remained asymptomatic. During this time, she was receiving 1 liter of normal saline for what appea red to be dehydration. She states she will have cardiac rehab, which will start early next month. H er symptoms did slowly improve in the ED after a single dose of aspirin 324 mg. On her EKG, this did show sinus tachycardia and what appeared to be a left bundle branch block with no ST-T changes. She denies any dizziness, blurred vision, fever, chills, denies any thyroid related problems and denies any weight loss or weight gain. REVIEW OF SYSTEMS: CONSTITUTIONAL: She denies fever, chills or weakness. EYES: Denies any blurred vision, double vision or eye pain. ENT: Denies any hearing loss, rhinorrhea, or nosebleeds, denies any sore throat. CARDIOVASCULAR: Denies any chest pain or palpitations. RESPIRATORY: Denies cough, shortness of breath or wheezing. GASTROINTESTINAL: Denies any abdominal pain, constipation, vomiting or nausea. MUSCULOSKELETAL: She did have some right arm tenderness with some numbness; however, this had resolv ed prior to coming to the ED, denies any weakness or fall. SKIN: Denies any rashes, itching or lesions. NEUROLOGICAL: Does report some speech changes, which she did have some slurred speech which lasted f or about 10 minutes last night and then resolved. Does report mild facial pain and left-sided headac he. PSYCHIATRIC: Denies any anxiety or depression. PAST MEDICAL HISTORY: She has a history of diabetes type 2, hypertension, systolic heart failure. PAST SURGICAL HISTORY: Positive for section. PSYCHIATRIC HISTORY: Denies any previous psychiatric history. SOCIAL HISTORY: Denies any alcohol use, drug use or smoking. FAMILY HISTORY: Denies any family history of CAD, stroke or cancer. ALLERGIES: No known drug allergies. CURRENT HOME MEDICATIONS: 1. Entresto 24.5/25.5 mg 1 tablet twice daily. 2. Lasix 20 mg daily. 3. Vitamin D3 1000 units oral daily. 4. Senokot 2 tablets daily as needed for constipation. 5. Atorvastatin 20 mg daily. 6. Glipizide 10 mg twice daily. 7. Carvedilol 3.125 mg twice daily. 8. Aspirin 81 mg daily. PHYSICAL EXAMINATION: VITAL SIGNS: On arrival, blood pressure 146/94, pulse 110, respirations 24, temperature 98.2, pain 5 /10, O2 saturations 94% on room air. GENERAL: She is alert and oriented x3, mild acute distress due to headache. HEENT: Head is normocephalic. Eyes; pupils are round, reactive to light. Extraocular muscles intac t. ENT; oropharynx is within normal limits. Moist mucous membranes. No oral lesions or pharyngeal erythema or exudate noted. NECK: Supple, no JVD, no thyromegaly, no carotid bruit. CARDIOVASCULAR: S1, S2, a little tachycardic with a rate of 110 on the monitor, no murmur, no gallop , no rub noted. LUNGS: Clear to auscultation bilaterally, no wheezes, no rhonchi, no rales. ABDOMEN: Soft, nontender, bowel sounds present, nondistended. No masses noted. BACK: Unremarkable, no CVA tenderness. MUSCULOSKELETAL: Strength 5+ bilaterally upper and lower extremities. Moves all extremities equally . Radial and pedal pulses 2+ bilaterally with no calf tenderness. SKIN: No skin rash or lesion noted with no bruising. PSYCHIATRIC: Normal mood and affect. NEUROLOGIC: Cranial nerves II-XII intact with no acute deficits noted. LABORATORY DATA: WBC 9.1, RBC 4.46, hemoglobin 13.2. PT 14.5, INR 1.1, PTT 28. Sodium 136, potassi um 5.0, creatinine 1.06, glucose 266, AST and ALT 22. Troponin less than 0.010 x1. BNP 352.7. Trig lycerides 202, total cholesterol 185. LDL 102, HDL 43. DIAGNOSTIC IMAGING: Chest x-ray reveals no evidence of acute cardiopulmonary disease, CT brain reve aled no acute intracranial abnormality with chronic appearing lacunar infarctions or prominent periva scular spaces in bilateral basal ganglia with no evidence of acute infarction. A CTA head and neck s howed somewhat generalized decrease caliber to the vertebral arteries, throat with mild less than 50% stenotic changes of both right and left ICAs, some atherosclerotic calcific plaques in the ICA is wi thout evidence of occlusion. ASSESSMENT AND PLAN: 1. Transient ischemic attack, continue aspirin and home dose of Lipitor, consult Neurology Services. We will order MRI brain for further evaluation. We will also continue on other home medications. 2. Hypertension. Restart home medications, will increase home dose of carvedilol to 6..25 twice alicia ly, will also continue Lasix 20 mg daily. We will finish 1 liter of normal saline and monitor vital signs closely. 3. Systolic heart failure, we will continue home medications and pending patient progress will also consider consult to Cardiology. 4. Diabetes mellitus type 2, continue glipizide twice daily. We will start daily Accu-Cheks and sta rted on sliding scale low dose prior to meals. 5. Deep venous thrombosis prophylaxis with Lovenox 40 mg subcu daily. 6. Gastrointestinal prophylaxis with Protonix daily. 7. CODE STATUS: The patient is FULL CODE. Patient's is surrogate decision maker. Disposition and plan will be based on clinical course. The patient will likely be discharged home pe nding workup and further recommendations from Neurology within the next 2 midnights.
[2018-08-17 14:37] LABS: Troponin I 0.021 ng/mL (< 0.028)
--- NOTE | 2018-08-17 15:04 | MRI ---
MRI BRAIN WITHOUT CONTRAST: HISTORY: TIA. FINDINGS: There is a small focal area of restricted diffusion in the left posterior frontal lobe (precentral gy souleymane). No evidence of hemorrhage, midline shift, or abnormal extraaxial fluid collections is seen. T he ventricular size is appropriate, and the basilar cisterns are patent. There are changes of cortic al atrophy and chronic small vessel ischemic disease. The visualized paranasal sinuses are well aera atiya. IMPRESSION: Small recent infarction in the left posterior frontal lobe. POS: [facility]
[2018-08-17] MEDS: Carvedilol 6.25 MG TAB PO SCH (17:48)
--- NOTE | 2018-08-17 19:05 | CON ---
DATE OF CONSULTATION: 08/17/2018 CONSULTING PHYSICIAN: Hospitalist Service. IMPRESSION: 1. Tiny lacunar infarction involving the left frontoparietal region superimposed on extensive small vessel ischemic damage. Her clinical picture is not consistent with her complaints. 2. Congestive heart failure with a new addition of Entresto to her regimen recently which I would wo nder may be a potential precipitating cause for the headache and tingling. 3. Hypertension. 4. Diabetes. PLAN: 1. Restart Entresto and monitor for recurrent headaches. 2. Continue aspirin therapy and consider anticoagulation based on her ejection fraction of 30%. HISTORY OF PRESENT ILLNESS: Ms. Peters is a 73-year-old black female who came in yesterday with compl aints of the worst headache of her life involving the left side of her head. She noted some numbness and tingling in the right hand. She also felt like there was some word finding difficulty. Her int ensity of her headache is diminished by about 50%. The intensity of the numbness has also subsided. Her initial CT scan of the brain did not show any evidence of a hemorrhage. Her subsequent MRI show ed an acute punctate area of ischemia as noted above. Vital signs have been stable through the day w ith a very normal pressures. She has been afebrile. She denies any nausea, vomiting, blurred vision , dizziness, light sensitivity or prior headaches of this magnitude. PAST MEDICAL HISTORY: As listed above. ALLERGIES: None. SOCIAL HISTORY: Unremarkable. FAMILY HISTORY: Noncontributory. REVIEW OF SYSTEMS: Otherwise, negative. PHYSICAL EXAMINATION: VITAL SIGNS: Blood pressure 123/77, pulse 102, respirations 16, temperature 99.1. HEENT: Pupils are equal. Conjunctivae clear. Oropharynx clear. NECK: Supple. EXTREMITIES: No cyanosis. NEUROLOGIC: She is alert and cooperative. Her speech is fluent and clear. There is no facial asymm etry. Adult Health Clinical Nurse Specialist strength and rapid alternating movements were equal. No tremor dysmetrias present. Sens ation is intact in the face as well as in the lower extremities. She was able to walk independently or earlier in the day. Imaging was reviewed. SUMMARY: Overall, picture of severe hemicranial headache and right-sided numbness do not correlate w ith a tiny area of infarction. I suspect that this is more of a migraine phenomenon. The incidental finding of extensive small vessel disease needs to be addressed with either antiplatelet therapy or anticoagulation depending on cardiology's recommendation. There is no significant carotid stenosis t hat needs to be addressed surgically. I will be happy to follow up with her as well.
[2018-08-17] MEDS ORDERED: glipiZIDE 10 MG TAB PO SCH (21:00)
[2018-08-17] MEDS: Atorvastatin Calcium 40 MG TAB PO SCH (21:18)
[2018-08-17] MEDS: Acetaminophen 325 MG TAB PO PRN (21:20)
[2018-08-17] MEDS: Sacubitril 24.5 MG/Valsartan 25.5 MG TABLET PO SCH (22:14)
[2018-08-18 05:29] LABS: Anion Gap 10 mmol/L (10-20); BUN (Urea Nitrogen) 13 mg/dL (9.8-20.1); Calc. Creatinine Clearance 79 mL/min (70-130); Calcium 10.4 mg/dL (7.8-10.44); Carbon Dioxide 22 mmol/L (23-31); Chloride 110 mmol/L (98-107); Estimated GFR-MDRD 80; Glucose 202 mg/dL (83-110); Potassium 4.1 mmol/L (3.5-5.1); Sodium 138 mmol/L (136-145)
[2018-08-18] MEDS: HumaLOG 300 UNITS/3 ML VIAL SC PRN ×3 (06:06→18:03)
[2018-08-18 06:57] LABS: Hemoglobin 11.5 g/dL (12.0-16.0); Mean Corpuscular HGB CONC 31.2 g/dL (32.0-36.0); Mean Corpuscular Hemoglobin 29.4 pg (27.0-31.0); Mean Corpuscular Volume 94.2 fL (78.0-98.0); Mean Platelet Volume 8.2 fL (7.4-10.4); Platelet Count 281 thou/uL (130-400); RBC Distribution Width 12.2 % (11.5-14.5); White Blood Cell (WBC) Count 7.1 thou/uL (4.8-10.8)
[2018-08-18 08:27] LABS: Eosinophils 2 % (0-10); Lymphocytes 57 % (21-51); MDiff Complete? YES; Monocytes 8 % (0-10); Neutrophil 31 % (42-75); PLT Morphology Comment Appears Adequate; Polychromasia SLIGHT = 2-3 cells (100X) (0-2/hpf); Reactive Lymphocytes 2 % (0-10)
[2018-08-18] MEDS ORDERED: Amlodipine 10 MG TAB PO SCH (09:00)
[2018-08-18] MEDS: Sacubitril 24.5 MG/Valsartan 25.5 MG TABLET PO SCH (09:08)
[2018-08-18] MEDS: Enoxaparin Sodium 40 MG/0.4 ML SYRINGE SC SCH (09:09)
[2018-08-18] MEDS: glipiZIDE 10 MG TAB PO SCH ×2 (09:09→18:05)
[2018-08-18] MEDS: Furosemide 20 MG TAB PO SCH (09:10)
[2018-08-18] MEDS: Carvedilol 6.25 MG TAB PO SCH ×2 (09:10→18:05)
[2018-08-18] MEDS: Aspirin 81 mg Enteric Coated Tablet PO SCH (09:16)
[2018-08-18] MEDS ORDERED: Carvedilol 6.25 MG TAB PO SCH (11:45)
[2018-08-18] MEDS: Acetaminophen 325 MG TAB PO PRN (12:03)
--- NOTE | 2018-08-18 18:50 | PDOC.PN ---
- Subjective Encounter Start Date: 08/18/18 Encounter Start Time: 16:00 Subjective: nsg notes rev, bridger ovn, pt's at bedside. pt with both word finding -: difficulty and some word salad type tendencies - Objective Resuscitation Status: Resuscitation Status FULL:Full Resuscitation Vital Signs & Weight: Vital Signs (12 hours) Temp Pulse Pulse Pulse Resp BP BP 08/18/18 18:05 115/79 08/18/18 16:00 98.6 F 103 H 20 08/18/18 11:59 98.3 F 92 16 08/18/18 11:57 115/79 08/18/18 10:49 89 88 104/70 08/18/18 09:41 90 86 104/75 08/18/18 09:15 85 08/18/18 09:10 115/79 08/18/18 08:10 08/18/18 08:00 98.9 F 99 20 BP BP BP Pulse Ox 08/18/18 18:05 08/18/18 16:00 113/74 97 08/18/18 11:59 105/59 L 98 08/18/18 11:57 08/18/18 10:49 105/70 103/64 08/18/18 09:41 96/69 08/18/18 09:15 08/18/18 09:10 08/18/18 08:10 94 L 08/18/18 08:00 121/72 94 L Weight Weight 184 lb 8 oz I&O: 08/17/18 08/18/18 08/19/18 06:59 06:59 06:59 Intake Total 90 Output Total 600 Balance -510 Result Diagrams: 08/18/18 04:59 08/18/18 04:59 Additional Labs: Accuchecks 08/18/18 08/18/18 08/18/18 17:01 10:59 06:05 POC Glucose 178 H 297 H 195 H 08/17/18 20:14 POC Glucose 238 H Phys Exam - Physical Examination Constitutional: NAD HEENT: PERRLA, moist MMs difficulty with finger to nose Neurological: moves all 4 limbs Psychiatric: normal affect oriented only to self - unable to state correct date, location, or Dx/Plan - Plan * chronic systolic HF with EF 15-20% * recently dx'd, recently s/p C. concern that new entresto (by hx and timing) could be contributing to an atypical migranous picture * d/c entresto. appreciate cardiology c/s re: best alternatives to use in this scenario * * AMS/ metabolic encephalopathy/ delirium * Pt has significant small vessel disease noted on neurological imaging which also demonstrates a small recent infarct which does not appear to correlate with overall clinical neurological presentation. That being said, patient certainly has a stroke and will need secondary prevention for stroke in addition to further evaluation for her current neurological presentation. Plan to d/c entresto. Pt's inquires if perhaps some of her other medications could be culprits as well. Discussed with him at the pt's bedside that the patient will still need to be on new medications due to her new dx * * DM2 * continue current regimen * pt's asking for a non-insulin option - discussed with him that this will likely not provide sufficient DM treatment but as long as there are no contra-indications, we may trial an oral regimen * * stroke * see discussion above. * appreciate neurology consultation * * diet: as bren * activity: as bren * dvt ppx * * Greater than 45 minutes spent at bedside discussing plan of care with pt's and the patient. * Review of Systems - Medications/Allergies Allergies/Adverse Reactions: Allergies Allergy/AdvReac Type Severity Reaction Status Date / Time No Known Allergies Allergy Verified 08/17/18 10:45 Medications: Current Medications Acetaminophen (Tylenol) 650 mg PO Q4H PRN PRN Reason: Headache/Fever/Mild Pain (1-3) Last Admin: 08/18/18 12:03 Dose: 650 mg Aspirin (Ecotrin) 81 mg PO DAILY [facility] Last Admin: 08/18/18 09:16 Dose: 81 mg Atorvastatin Calcium (Lipitor) 40 mg PO HS [facility] Last Admin: 08/17/18 21:18 Dose: 40 mg Carvedilol (Coreg) 3.125 mg PO BID-WM [facility] Last Admin: 08/18/18 18:05 Dose: 3.125 mg Dextrose/Water (Dextrose 50%) 25 gm SLOW IVP PRN PRN PRN Reason: Hypoglycemia Enoxaparin Sodium (Lovenox) 40 mg SC 0900 [facility] Last Admin: 08/18/18 09:09 Dose: 40 mg Furosemide (Lasix) 20 mg PO DAILY [facility] Last Admin: 08/18/18 09:10 Dose: 20 mg Glipizide (Glucotrol) 10 mg PO BID-[facility] Last Admin: 08/18/18 18:05 Dose: 10 mg Glucagon (Glucagon) 1 mg IM PRN PRN PRN Reason: Hypoglycemia Hydralazine HCl (Apresoline) 10 mg SLOW IVP Q4H PRN PRN Reason: Hypertension Dextrose/Water (D5w) 1,000 mls @ 0 mls/hr IV .Q0M PRN PRN Reason: Hypoglycemia Insulin Human Lispro (Humalog) 0 units SC .MILD SLIDING SCALE PRN PRN Reason: Mild Correctional Scale Last Admin: 08/18/18 18:03 Dose: 2 units Ondansetron HCl (Zofran) 4 mg IVP Q6H PRN PRN Reason: Nausea/Vomiting Sacubitril/Valsartan (Entresto 24.5 Mg-25.5 Mg Tablet) 1 tab PO BID [facility] Last Admin: 08/18/18 09:08 Dose: 1 tab Sodium Chloride (Flush - Normal Saline) 10 ml IVF Q12HR [facility] Last Admin: 08/18/18 09:06 Dose: 10 ml Sodium Chloride (Flush - Normal Saline) 10 ml IVF PRN PRN PRN Reason: Saline Flush
[2018-08-18] MEDS: Atorvastatin Calcium 40 MG TAB PO SCH (21:51)
[2018-08-19] MEDS: HumaLOG 300 UNITS/3 ML VIAL SC PRN ×4 (05:50→22:12)
[2018-08-19] MEDS: Furosemide 20 MG TAB PO SCH (10:13)
[2018-08-19] MEDS: Sacubitril 24.5 MG/Valsartan 25.5 MG TABLET PO SCH ×2 (10:13→21:25)
[2018-08-19] MEDS: Carvedilol 6.25 MG TAB PO SCH ×2 (10:13→18:14)
[2018-08-19] MEDS: glipiZIDE 10 MG TAB PO SCH ×2 (10:13→18:14)
[2018-08-19] MEDS: Aspirin 81 mg Enteric Coated Tablet PO SCH (10:13)
[2018-08-19] MEDS: Enoxaparin Sodium 40 MG/0.4 ML SYRINGE SC SCH (10:17)
[2018-08-19] MEDS ORDERED: Enoxaparin Sodium 40 MG/0.4 ML SYRINGE SC SCH (12:15)
--- NOTE | 2018-08-19 14:13 | PDOC.PN ---
- Subjective Encounter Start Date: 08/19/18 Encounter Start Time: 07:00 Pt seen for followup re: ischemic CVA. Denies chest pain, shortness of breath, fevers, chills or weakness. - Objective Resuscitation Status: Resuscitation Status FULL:Full Resuscitation MAR Reviewed: Yes Vital Signs & Weight: Vital Signs (12 hours) Temp Pulse Pulse Pulse Resp BP BP 08/19/18 12:00 97.6 F 96 16 08/19/18 10:13 116/84 08/19/18 08:48 85 84 112/74 08/19/18 08:00 97.8 F 83 18 08/19/18 04:00 98.4 F 91 14 BP BP Pulse Ox 08/19/18 12:00 121/81 96 08/19/18 10:13 08/19/18 08:48 118/80 08/19/18 08:00 118/85 98 08/19/18 04:00 113/79 98 Weight Weight 182 lb 1.6 oz I&O: 08/18/18 08/19/18 08/20/18 06:59 06:59 06:59 Intake Total 90 1210 Output Total 600 500 Balance -510 710 Result Diagrams: 08/18/18 04:59 08/18/18 04:59 Additional Labs: Accuchecks 08/19/18 08/19/18 08/18/18 11:06 05:43 20:48 POC Glucose 281 H 183 H 159 H 08/18/18 17:01 POC Glucose 178 H EKG Reviewed by me: Yes (Tele: NSR) Phys Exam - Physical Examination Constitutional: NAD HEENT: moist MMs Neck: supple Respiratory: clear to auscultation bilateral Cardiovascular: RRR Gastrointestinal: soft Neurological: moves all 4 limbs Psychiatric: normal affect Dx/Plan (1) Ischemic cerebrovascular accident (CVA) Code(s): I63.9 - CEREBRAL INFARCTION, UNSPECIFIED Status: Acute Comment: continue aspirin, statin (2) Acute systolic heart failure Code(s): I50.21 - ACUTE SYSTOLIC (CONGESTIVE) HEART FAILURE Status: Acute Comment: continue furosemide (3) Diabetes Code(s): E11.9 - TYPE 2 DIABETES MELLITUS WITHOUT COMPLICATIONS Status: Chronic Comment: continue accuchecks, insulin sliding scale. - Plan * . Review of Systems - Review of Systems Cardiovascular: negative: chest pain, palpitations, orthopnea, paroxysmal nocturnal dyspnea, edema, light headedness Gastrointestinal: negative: Nausea, Vomiting, Abdominal Pain, Diarrhea, Constipation, Melena, Hematochezia Neurological: negative: Weakness, Numbness, Incoordination, Change in Speech, Confusion, Seizures - Medications/Allergies Allergies/Adverse Reactions: Allergies Allergy/AdvReac Type Severity Reaction Status Date / Time No Known Allergies Allergy Verified 08/17/18 10:45 Medications: Current Medications Acetaminophen (Tylenol) 650 mg PO Q4H PRN PRN Reason: Headache/Fever/Mild Pain (1-3) Last Admin: 08/18/18 12:03 Dose: 650 mg Aspirin (Ecotrin) 81 mg PO DAILY [facility] Last Admin: 08/19/18 10:13 Dose: 81 mg Atorvastatin Calcium (Lipitor) 40 mg PO HS [facility] Last Admin: 08/18/18 21:51 Dose: 40 mg [facility] Last Admin: 08/19/18 10:13 Dose: 3.125 mg Dextrose/Water (Dextrose 50%) 25 gm SLOW IVP PRN PRN PRN Reason: Hypoglycemia Enoxaparin Sodium (Lovenox) 80 mg SC 0900,2100 [facility] Furosemide (Lasix) 20 mg PO DAILY [facility] Last Admin: 08/19/18 10:13 Dose: 20 mg [facility]) [facility] Last Admin: 08/19/18 10:13 Dose: 10 mg Glucagon (Glucagon) 1 mg IM PRN PRN PRN Reason: Hypoglycemia Hydralazine HCl (Apresoline) 10 mg SLOW IVP Q4H PRN PRN Reason: Hypertension Dextrose/Water (D5w) 1,000 mls @ 0 mls/hr IV .Q0M PRN PRN Reason: Hypoglycemia Insulin Human Lispro (Humalog) 0 units SC .MILD SLIDING SCALE PRN PRN Reason: Mild Correctional Scale Last Admin: 08/19/18 11:44 Dose: 4 units Ondansetron HCl (Zofran) 4 mg IVP Q6H PRN PRN Reason: Nausea/Vomiting Sacubitril/Valsartan (Entresto 24.5 Mg-25.5 Mg Tablet) 1 tab PO BID [facility] Last Admin: 08/19/18 10:13 Dose: 1 tab Sodium Chloride (Flush - Normal Saline) 10 ml IVF Q12HR [facility] Last Admin: 08/19/18 10:18 Dose: 10 ml Sodium Chloride (Flush - Normal Saline) 10 ml IVF PRN PRN PRN Reason: Saline Flush Warfarin Sodium (Coumadin) 5 mg PO 1700 SILVESTRE
[2018-08-19] MEDS ORDERED: WARFARIN PO SCH (14:45)
--- NOTE | 2018-08-19 15:33 | CON ---
DATE OF CONSULTATION: 08/19/2018 HISTORY OF PRESENT ILLNESS: The patient is a 73-year-old woman who presents for evaluation after having a headache and confusion. The patient was recently hospitalized with congestive heart failure. She was found to have a severe decrease in left ventricular systolic function with an estimated ejection fraction of 15%-20%. The patient subsequently underwent a cardiac catheterization. She was found to have a severe decrease in left ventricular systolic function with normal coronary arteries. The patient was placed on Entresto and Coreg. The patient had a LifeVest placed. The patient went home and several days later presented back to the emergency room with acute onset of headaches and difficulty speaking. The patient did not have any chest pain or palpitations. PAST MEDICAL HISTORY: 1. Cardiomyopathy. 2. Hypertension. 3. History of diabetes mellitus. 4. History of pneumothorax. PAST SURGICAL HISTORY: . SOCIAL HISTORY: Nonsmoker. ALLERGIES: No known drug allergies. MEDICATIONS: Coreg 3.125 b.i.d., Lipitor 20 daily, aspirin 81 daily, Entresto 24 /25 daily, Lasix 20 daily, glipizide 10 b.i.d. FAMILY HISTORY: Strong family history of heart disease. ALLERGIES: No known drug allergies. REVIEW OF SYSTEMS: Ten-point system otherwise unremarkable. PHYSICAL EXAMINATION: GENERAL: Confused woman with a blood pressure of 164/84. NECK: Showed no jugular venous distention, no carotid bruits. LUNGS: Clear to auscultation. HEART: Regular rate and rhythm, normal S1, S2. ABDOMEN: Nondistended. EXTREMITIES: Showed trace edema. VASCULAR: Radial pulses are 2+. LABORATORY DATA AND IMAGING: Her sodium was 138, potassium 4.1, chloride 110, bicarbonate 22, BUN 13, creatinine 0.84, glucose 202. Her BNP was 352. Troponin was less than 0.01. White blood cell count 7.1, hemoglobin 11.5, hematocrit 36.8, platelets are 281. Her EKG revealed normal sinus rhythm with a left bundle branch block. CT scan revealed evidence of a possible lacunar infarct. IMPRESSION AND PLAN: 1. Probable cerebrovascular accident. 2. Cardiomyopathy. 3. Hypertension. 4. Diabetes mellitus. This unfortunate woman presents with a probable cerebrovascular accident. She was seen by Neurology. It was felt that she most likely did not have an embolic cerebrovascular accident. Neurology feels that it is most appropriate; however, with her low ejection fraction,for her to be on anticoagulation therapy. The patient will be placed on subcutaneous Lovenox. We will start Coumadin. We will continue low dose aspirin. We will follow this patient with you through her hospitalization. DAMASO
[2018-08-19] MEDS ORDERED: Warfarin Sodium 5 MG TAB PO SCH (17:00)
[2018-08-19] MEDS: Atorvastatin Calcium 40 MG TAB PO SCH (21:24)
[2018-08-19] MEDS: Enoxaparin Sodium 80 MG/0.8 ML SYRINGE SC SCH (21:25)
[2018-08-20 05:43] LABS: INR-International Normal Ratio 1.1; Prothrombin Time 14.4 SEC (12.0-14.7)
[2018-08-20] MEDS ORDERED: Carvedilol 6.25 MG TAB PO SCH (08:00)
[2018-08-20] MEDS: Aspirin 81 mg Enteric Coated Tablet PO SCH (09:54)
[2018-08-20] MEDS: glipiZIDE 10 MG TAB PO SCH (09:54)
[2018-08-20] MEDS: Enoxaparin Sodium 80 MG/0.8 ML SYRINGE SC SCH (09:55)
[2018-08-20] MEDS: Furosemide 20 MG TAB PO SCH (09:55)
[2018-08-20 11:53] VITALS: TEMP 98.6
[2018-08-20] MEDS: Carvedilol 6.25 MG TAB PO SCH (11:56)
[2018-08-20 11:57] VITALS: BP 125/78
[2018-08-20] MEDS: Sacubitril 24.5 MG/Valsartan 25.5 MG TABLET PO SCH (12:15)
--- NOTE | 2018-08-21 20:08 | DIS ---
DATE OF ADMISSION: 08/17/2018 DATE OF DISCHARGE: 08/20/2018 DISCHARGE DIAGNOSES: 1. Small lacunar infarction involving the left frontoparietal region. 2. Extensive small vessel ischemic damage. 3. Cardiomyopathy with an ejection fraction of 15%-20%. 4. Hypertension. 5. Diabetes mellitus. HOSPITAL COURSE: The patient is a 73-year-old female who presented to the emergency department complaining of hypertension and headache. She also had reported a transient episode of slurred speech and right arm weakness that had fully resolved. The patient was initially admitted with a concern for possible TIA. Her CT showed no acute intracranial abnormality with chronic appearing lacunar infarction. CTA of the head and neck showed some decreased caliber of the vertebral arteries, but no significant stenosis or occlusion appreciated. The patient subsequently had an MRI which showed a small recent infarction in the left posterior frontal lobe. She was seen in consultation by Neurology who confirmed that finding, but felt that her clinical picture did not correlate well with the symptomatology which she presented. Ultimately, however, given her significant cardiomyopathy, it felt she would benefit from anticoagulation. Cardiology was subsequently consulted to evaluate the patient for managing anticoagulation for the cardiomyopathy and they felt the patient would benefit from Coumadin therapy and she was started on therapeutic levels of Lovenox. The following day, the patient was seen by physical therapy and ultimately was referred to inpatient rehab where she could continue to work with therapy and have her medications manage. She was accepted and transferred there on 2017. PHYSICAL EXAMINATION: VITAL SIGNS: On the day of discharge, temperature is 98.6, pulse 93, BP 125/78 , respirations 20, O2 sat 95% on room air. GENERAL: The patient is awake, alert, oriented, pleasant, cooperative. HEART: Regular rate and rhythm without murmurs. LUNGS: Clear bilaterally. ABDOMEN: Soft, nontender, nondistended, positive bowel sounds. EXTREMITIES: The patient appears to be generally neurologically intact without any significant deficits presently noted. Her activity level will be as tolerated. She will be on a diabetic diet. She will be on Lovenox 80 mg subq b.i.d., warfarin 5 mg every day. These will be adjusted pending the results of her INR. She will also be on vitamin D3, Lasix, Entresto, Senokot S, Lipitor and Glucotrol, Coreg and aspirin after discharge. She will follow up with [facility], Dr. Zavaleta, Dr. Menendez and Dr. Godoy. She can return to the emergency department should she have any problems prior to that time. DAMASO
--- NOTE | 2018-08-21 23:07 | EKG ---
Test Reason : Blood Pressure : / mmHG Vent. Rate : 109 BPM Atrial Rate : 109 BPM P-R Int : 134 ms QRS Dur : 130 ms QT Int : 366 ms P-R-T Axes : 051 -23 074 degrees QTc Int : 492 ms Sinus tachycardia Possible Left atrial enlargement Left bundle branch block Abnormal ECG Confirmed by KISHORE GROSS ([id number]), editor newspaper DELORES WARNER ([id number]) on 08/21/2018 11:07:04 PM Referred By: Confirmed By:KISHORE GROSS
== END 2018-08-20 16:45 | DRG 64 ==
LOC: ERS 06:15 → 2SE 10:26 → OBSVTOIN 08-18 08:01
PROVIDERS: ADMIT Internal Medicine; ATTEND Internal Medicine
DX: I63.9 Cerebral infarction, unspecified (principal); I50.23 Acute on chronic systolic (congestive) heart failure; G93.41 Metabolic encephalopathy; G81.91 Hemiplegia, unspecified affecting right dominant side; I63.81 Other cerebral infarction due to occlusion or stenosis of small artery; R47.81 Slurred speech; I11.0 Hypertensive heart disease with heart failure; E11.9 Type 2 diabetes mellitus without complications
CPT/HCPCS: 36415; 36416; 70450; 70496; 70498; 70551; 71045; 80048; 80053; 80061; 81003; 82553; 83880; 84484; 85025; 85610; 85730; 93005; 94760; 96360; 96361; G8978-GP-CK; G8979-GP-CI; G8987-GO-CJ; G8988-GO-CI; G9162-GN-CL; G9163-GN-CK; J1650

== ENCOUNTER 2019-09-21 12:26 | Outpatient (CLI) | payer MEDICARE ==
--- NOTE | 2019-09-21 11:40 | MMO ---
Bilateral MAMMO Bilat Diag [facility]O. CLINICAL HISTORY: Patient is 74 years old and is seen for diagnostic exam. The patient has a history of right needle biopsy in September, - benign. VIEWS: The views performed were: . FILMS COMPARED: The present examination has been compared to prior imaging studies performed at [facility] on 07/12/2012, 10/13/2013, 02/08/2015 and 06/12/2017. This study has been interpreted with the assistance of computer-aided detection. MAMMOGRAM FINDINGS: There are scattered fibroglandular densities. There are stable benign appearing calcifications seen in both breasts. There are no suspicious masses, calcifications or areas of architectural distortion. There are no suspicious masses, suspicious calcifications, or new areas of architectural distortion. IMPRESSION: THERE IS NO MAMMOGRAPHIC EVIDENCE OF MALIGNANCY. A ROUTINE FOLLOW-UP MAMMOGRAM IN 1 YEAR IS RECOMMENDED. THE RESULTS OF THIS EXAM WERE SENT TO THE PATIENT. ACR BI-RADS Category 2 - Benign finding MAMMOGRAPHY NOTE: 1. A negative mammogram report should not delay a biopsy if a dominant of clinically suspicious mass is present. 2. Approximately 10% to 15% of breast cancers are not detected by mammography. 3. Adenosis and dense breasts may obscure an underlying neoplasm. Reported by: MEGAN OLIVEIRA MD Electonically Signed: [id number]
== END 2019-09-21 12:27 | disposition home or self-care (01) ==
LOC: BICMAMMO 12:26
PROVIDERS: ATTEND Family Medicine
DX: N64.4 Mastodynia (principal)
CPT/HCPCS: 77066; G0279

== ENCOUNTER 2021-06-10 00:19 | Inpatient (IN) | payer MEDICARE ==
[2021-06-10 01:32] LABS: Hemoglobin 11.5 g/dL (12.0-16.0); Mean Corpuscular HGB CONC 33.4 g/dL (32.0-36.0); Mean Corpuscular Hemoglobin 31.4 pg (27.0-31.0); Mean Corpuscular Volume 93.8 fL (78.0-98.0); RBC Distribution Width 12.9 % (11.5-14.5); Red Blood Cell (RBC) Count 3.65 mill/uL (4.20-5.40); White Blood Cell (WBC) Count 6.5 thou/uL (4.8-10.8)
[2021-06-10 01:40] LABS: ALT (SGPT) 11 U/L (8-55); AST (SGOT) 11 U/L (5-34); Albumin 3.5 g/dL (3.4-4.8); Alkaline Phosphatase 95 U/L (40-110); Anion Gap 13 mmol/L (10-20); BUN (Urea Nitrogen) 14 mg/dL (9.8-20.1); Bilirubin, Total 0.7 mg/dL (0.2-1.2); Calc. Creatinine Clearance 0 mL/min (70-130); Calcium 10.4 mg/dL (7.8-10.44); Carbon Dioxide 19 mmol/L (23-31); Chloride 108 mmol/L (98-107); Globulin 4.2 g/dL (2.4-3.5); Glucose 172 mg/dL (83-110); Potassium 4.4 mmol/L (3.5-5.1); Protein, Total 7.7 g/dL (5.8-8.1); Sodium 136 mmol/L (136-145)
[2021-06-10 01:42] LABS: Eosinophils 1 % (0-10); Hypochromia SLIGHT = 6-15 cells (100X) (0-5/hpf); Lymphocytes 45 % (21-51); MDiff Complete? YES; Mean Platelet Volume 8.3 fL (7.4-10.4); Monocytes 8 % (0-10); Neutrophil 46 % (42-75); Platelet Count 62 thou/uL (130-400); Platelet Morphology Comment Appears Decreased
[2021-06-10 01:44] LABS: INR-International Normal Ratio 1.1; PTT 30.1 sec (22.9-36.1)
[2021-06-10 01:49] LABS: Bilirubin Negative (Negative); Blood, Urine Negative (Negative); Clarity Clear (Clear); Glucose, Urine (Dipstick) Normal (Negative); Ketone, Urine Negative (Negative); Leukocyte Negative Leu/uL (Negative); Nitrite 2+ (Negative); Protein, Urine (Dipstick) 10 mg/dL (Neg-Trace); RBC/HPF 0-3 HPF (0-3); Specific Gravity, Urine 1.038 (1.002-1.036); Squamous Epithelial 0-3 HPF (0-3); Urobilinogen Normal mg/dL (Less than 2); WBC/HPF 0-3 HPF (0-3)
[2021-06-10 01:53] LABS: Bacteria/HPF 1+ HPF (None Seen)
[2021-06-10] MEDS ORDERED: cefTRIAXone\\ROCEPHIN 2 GM VIAL ONE (02:06)
[2021-06-10] MEDS ORDERED: Aspirin Chewable 81 MG TAB ONE (02:06)
[2021-06-10 04:35] LABS: SARS-CoV-2 NAA Rapid Test Not Detected (NotDetected)
[2021-06-10] MEDS ORDERED: Iopamidol-370 76% 500 ML 1 ML ONE (14:57)
[2021-06-10] MEDS ORDERED: Ondansetron ODT 4 MG TAB PO PRN (17:14)
[2021-06-10] MEDS ORDERED: Dextrose 50% Abboject 50 ML SYRINGE SLOW IVP PRN (17:14)
[2021-06-10] MEDS ORDERED: Ondansetron PF 4 MG/2 ML Vial IVP PRN (17:14)
[2021-06-10] MEDS ORDERED: Dextrose 5% in Water 1,000 ML IV PRN (17:14)
[2021-06-10] MEDS ORDERED: hydrALAZINE 20 MG/ML VIAL SLOW IVP PRN (17:14)
[2021-06-10] MEDS: glipiZIDE 10 MG TAB PO SCH (21:48)
[2021-06-10] MEDS: Famotidine 20 MG TAB PO SCH (21:48)
[2021-06-10] MEDS: Atorvastatin Calcium 40 MG TAB PO SCH (21:48)
[2021-06-10] MEDS: Sacubitril 49 MG/Valsartan 51 MG TABLET PO SCH (21:48)
[2021-06-10] MEDS: Carvedilol 3.125 MG TAB PO SCH (21:48)
[2021-06-10] MEDS: HumaLOG 300 UNITS/3 ML VIAL SC PRN (22:52)
[2021-06-11] MEDS: cefTRIAXone\\ROCEPHIN 2 GM in Sodium Chloride 0.9% 100 ML IVPB SCH ×2 (02:37→03:08)
[2021-06-11 05:05] LABS: #Basophils 0.1 thou/uL (0.0-0.2); #Eosinphils 0.1 thou/uL (0.0-0.7); #Lymphocytes 3.7 thou/uL (1.20-3.40); #Monocytes 0.7 thou/uL (0.11-0.59); #Neutrophils 4.8 thou/uL (1.40-6.50); %Basophils 0.9 % (0.0-1.0); %Eosinophils 1.1 % (0.0-10.0); %Lymphocytes 39.9 % (21.0-51.0); %Monocytes 7.1 % (0.0-10.0); Hemoglobin 11.9 g/dL (12.0-16.0); Mean Corpuscular HGB CONC 32.4 g/dL (32.0-36.0); Mean Corpuscular Volume 92.6 fL (78.0-98.0); Mean Platelet Volume 7.7 fL (7.4-10.4); Platelet Count 248 thou/uL (130-400); RBC Distribution Width 12.8 % (11.5-14.5); Red Blood Cell (RBC) Count 3.96 mill/uL (4.20-5.40); White Blood Cell (WBC) Count 9.3 thou/uL (4.8-10.8)
[2021-06-11 05:41] LABS: Hemoglobin A1c 6.5 % (4.0-6.0)
[2021-06-11 05:50] LABS: Anion Gap 13 mmol/L (10-20); BUN (Urea Nitrogen) 11 mg/dL (9.8-20.1); Calc. Creatinine Clearance 72 mL/min (70-130); Calcium 10.8 mg/dL (7.8-10.44); Carbon Dioxide 18 mmol/L (23-31); Cardiac Risk 3.2 (Less than 4.5); Chloride 107 mmol/L (98-107); Cholesterol 145 mg/dl (< 200 Desired); Glucose 122 mg/dL (83-110); HDL Cholesterol 46 mg/dL (>60 Neg Risk); LDL Cholesterol, Calculated 77 mg/dL; Potassium 3.8 mmol/L (3.5-5.1); Sodium 134 mmol/L (136-145); Triglycerides 110 mg/dL (Less than 150)
[2021-06-11] MEDS: Cholecalciferol 1,000 UNITS (25 MCG) TAB PO SCH (10:36)
[2021-06-11] MEDS: Carvedilol 3.125 MG TAB PO SCH ×2 (10:36→21:08)
[2021-06-11] MEDS: Famotidine 20 MG TAB PO SCH ×2 (10:36→21:08)
[2021-06-11] MEDS: Aspirin 81 mg Enteric Coated Tablet PO SCH (10:36)
[2021-06-11] MEDS: Furosemide 20 MG TAB PO SCH (10:36)
[2021-06-11] MEDS: Sacubitril 49 MG/Valsartan 51 MG TABLET PO SCH ×2 (10:37→21:08)
[2021-06-11] MEDS: glipiZIDE 10 MG TAB PO SCH ×2 (10:37→21:08)
[2021-06-11] MEDS ORDERED: Famotidine/PF 20 mg/2ml Vial ONE (21:04)
[2021-06-11] MEDS: HumaLOG 300 UNITS/3 ML VIAL SC PRN (21:08)
[2021-06-11] MEDS: Atorvastatin Calcium 40 MG TAB PO SCH (21:09)
[2021-06-12] MEDS: cefTRIAXone\\ROCEPHIN 2 GM in Sodium Chloride 0.9% 100 ML IVPB SCH (01:13)
[2021-06-12] MEDS: HumaLOG 300 UNITS/3 ML VIAL SC PRN ×3 (06:27→16:01)
[2021-06-12] MEDS: Cholecalciferol 1,000 UNITS (25 MCG) TAB PO SCH (09:00)
[2021-06-12] MEDS: Furosemide 20 MG TAB PO SCH (09:00)
[2021-06-12] MEDS: Sacubitril 49 MG/Valsartan 51 MG TABLET PO SCH ×2 (09:00→23:01)
[2021-06-12] MEDS: Carvedilol 3.125 MG TAB PO SCH ×2 (09:00→23:01)
[2021-06-12] MEDS: Aspirin 81 mg Enteric Coated Tablet PO SCH (09:00)
[2021-06-12] MEDS: Famotidine 20 MG TAB PO SCH ×2 (09:00→23:01)
[2021-06-12] MEDS: glipiZIDE 10 MG TAB PO SCH ×2 (09:00→23:02)
[2021-06-12] MEDS: Atorvastatin Calcium 40 MG TAB PO SCH (23:02)
[2021-06-13] MEDS: cefTRIAXone\\ROCEPHIN 2 GM in Sodium Chloride 0.9% 100 ML IVPB SCH (01:47)
[2021-06-13 06:54] LABS: Anion Gap 12 mmol/L (10-20); BUN (Urea Nitrogen) 14 mg/dL (9.8-20.1); Calc. Creatinine Clearance 61 mL/min (70-130); Calcium 10.6 mg/dL (7.8-10.44); Carbon Dioxide 22 mmol/L (23-31); Chloride 105 mmol/L (98-107); Glucose 146 mg/dL (83-110); Potassium 3.9 mmol/L (3.5-5.1); Sodium 135 mmol/L (136-145)
[2021-06-13] MEDS: Sacubitril 49 MG/Valsartan 51 MG TABLET PO SCH ×2 (08:43→21:02)
[2021-06-13] MEDS: Cholecalciferol 1,000 UNITS (25 MCG) TAB PO SCH (08:43)
[2021-06-13] MEDS: glipiZIDE 10 MG TAB PO SCH ×2 (08:43→21:02)
[2021-06-13] MEDS: Famotidine 20 MG TAB PO SCH ×2 (08:43→21:02)
[2021-06-13] MEDS: Carvedilol 3.125 MG TAB PO SCH ×2 (08:43→21:02)
[2021-06-13] MEDS: Furosemide 20 MG TAB PO SCH (08:43)
[2021-06-13] MEDS: Aspirin 81 mg Enteric Coated Tablet PO SCH (08:43)
[2021-06-13] MEDS: Atorvastatin Calcium 40 MG TAB PO SCH (21:02)
[2021-06-14] MEDS: cefTRIAXone\\ROCEPHIN 2 GM in Sodium Chloride 0.9% 100 ML IVPB SCH (02:45)
[2021-06-14] MEDS: HumaLOG 300 UNITS/3 ML VIAL SC PRN ×2 (06:50→17:54)
[2021-06-14] MEDS: Furosemide 20 MG TAB PO SCH (10:25)
[2021-06-14] MEDS: Carvedilol 3.125 MG TAB PO SCH ×2 (10:25→21:28)
[2021-06-14] MEDS: glipiZIDE 10 MG TAB PO SCH (10:25)
[2021-06-14] MEDS: Aspirin 81 mg Enteric Coated Tablet PO SCH (10:25)
[2021-06-14] MEDS: Cholecalciferol 1,000 UNITS (25 MCG) TAB PO SCH (10:25)
[2021-06-14] MEDS: Famotidine 20 MG TAB PO SCH ×2 (10:25→21:28)
[2021-06-14] MEDS: Sacubitril 49 MG/Valsartan 51 MG TABLET PO SCH ×2 (10:32→21:29)
[2021-06-14] MEDS ORDERED: levETIRAcetam in NS 500 MG in Premix Bag 1 BAG IVPB SCH (11:45)
[2021-06-14 12:54] LABS: #Basophils 0.1 thou/uL (0.0-0.2); #Eosinphils 0.2 thou/uL (0.0-0.7); #Monocytes 0.9 thou/uL (0.11-0.59); #Neutrophils 3.9 thou/uL (1.40-6.50); %Basophils 0.7 % (0.0-1.0); %Eosinophils 1.9 % (0.0-10.0); %Monocytes 10.9 % (0.0-10.0); %Neutrophils 48.5 % (42.0-75.0); Hemoglobin 11.8 g/dL (12.0-16.0); Mean Corpuscular HGB CONC 32.3 g/dL (32.0-36.0); Mean Corpuscular Hemoglobin 29.8 pg (27.0-31.0); Mean Corpuscular Volume 92.1 fL (78.0-98.0); Mean Platelet Volume 7.6 fL (7.4-10.4); Platelet Count 318 thou/uL (130-400); RBC Distribution Width 12.8 % (11.5-14.5); Red Blood Cell (RBC) Count 3.97 mill/uL (4.20-5.40)
[2021-06-14 13:18] LABS: ALT (SGPT) 9 U/L (8-55); AST (SGOT) 9 U/L (5-34); Albumin 3.5 g/dL (3.4-4.8); Alkaline Phosphatase 97 U/L (40-110); Anion Gap 13 mmol/L (10-20); BUN (Urea Nitrogen) 15 mg/dL (9.8-20.1); Bilirubin, Total 0.7 mg/dL (0.2-1.2); Calc. Creatinine Clearance 62 mL/min (70-130); Calcium 10.8 mg/dL (7.8-10.44); Carbon Dioxide 22 mmol/L (23-31); Chloride 105 mmol/L (98-107); Globulin 4.5 g/dL (2.4-3.5); Glucose 198 mg/dL (83-110); Magnesium 2.2 mg/dL (1.6-2.6); Phosphorus 2.9 mg/dL (2.3-4.7); Sodium 136 mmol/L (136-145)
[2021-06-14] MEDS: Enoxaparin Sodium 40 MG/0.4 ML SYRINGE SC SCH (21:28)
[2021-06-14] MEDS: levETIRAcetam in NS 500 MG in Premix Bag 1 BAG IVPB SCH (21:28)
[2021-06-14] MEDS: Atorvastatin Calcium 40 MG TAB PO SCH (21:28)
[2021-06-15] MEDS: cefTRIAXone\\ROCEPHIN 2 GM in Sodium Chloride 0.9% 100 ML IVPB SCH (01:23)
[2021-06-15] MEDS: HumaLOG 300 UNITS/3 ML VIAL SC PRN ×4 (06:06→21:31)
[2021-06-15 07:57] LABS: ALT (SGPT) 10 U/L (8-55); AST (SGOT) 13 U/L (5-34); Albumin 3.5 g/dL (3.4-4.8); Alkaline Phosphatase 107 U/L (40-110); Anion Gap 16 mmol/L (10-20); BUN (Urea Nitrogen) 16 mg/dL (9.8-20.1); Bilirubin, Total 0.6 mg/dL (0.2-1.2); Calc. Creatinine Clearance 64 mL/min (70-130); Calcium 11.1 mg/dL (7.8-10.44); Carbon Dioxide 17 mmol/L (23-31); Chloride 105 mmol/L (98-107); Globulin 4.7 g/dL (2.4-3.5); Glucose 239 mg/dL (83-110); Magnesium 2.1 mg/dL (1.6-2.6); Phosphorus 2.5 mg/dL (2.3-4.7); Potassium 4.2 mmol/L (3.5-5.1); Protein, Total 8.2 g/dL (5.8-8.1); Sodium 134 mmol/L (136-145)
[2021-06-15] MEDS: levETIRAcetam in NS 500 MG in Premix Bag 1 BAG IVPB SCH ×2 (09:14→20:04)
[2021-06-15] MEDS: Sacubitril 49 MG/Valsartan 51 MG TABLET PO SCH (09:15)
[2021-06-15] MEDS: Carvedilol 3.125 MG TAB PO SCH ×2 (09:15→20:05)
[2021-06-15] MEDS: Furosemide 20 MG TAB PO SCH (09:16)
[2021-06-15] MEDS: Aspirin 81 mg Enteric Coated Tablet PO SCH (09:16)
[2021-06-15] MEDS: Cholecalciferol 1,000 UNITS (25 MCG) TAB PO SCH (09:16)
[2021-06-15] MEDS: Famotidine 20 MG TAB PO SCH ×2 (09:16→20:05)
[2021-06-15 10:06] LABS: #Eosinphils 0.1 thou/uL (0.0-0.7); #Lymphocytes 3.5 thou/uL (1.20-3.40); #Monocytes 1.3 thou/uL (0.11-0.59); #Neutrophils 5.5 thou/uL (1.40-6.50); %Basophils 0.3 % (0.0-1.0); %Eosinophils 1.4 % (0.0-10.0); %Lymphocytes 33.6 % (21.0-51.0); %Monocytes 12.2 % (0.0-10.0); %Neutrophils 52.5 % (42.0-75.0); Hemoglobin 14.4 g/dL (12.0-16.0); Mean Corpuscular HGB CONC 32.8 g/dL (32.0-36.0); Mean Corpuscular Hemoglobin 30.3 pg (27.0-31.0); Mean Corpuscular Volume 92.2 fL (78.0-98.0); Mean Platelet Volume 7.8 fL (7.4-10.4); Platelet Count 263 thou/uL (130-400); RBC Distribution Width 12.9 % (11.5-14.5); Red Blood Cell (RBC) Count 4.74 mill/uL (4.20-5.40); White Blood Cell (WBC) Count 10.4 thou/uL (4.8-10.8)
[2021-06-15] MEDS: Scopolamine 1.5 mg/72 hour Patch TD SCH (13:27)
[2021-06-15] MEDS: Enoxaparin Sodium 40 MG/0.4 ML SYRINGE SC SCH (20:04)
[2021-06-15] MEDS: Atorvastatin Calcium 40 MG TAB PO SCH (20:05)
[2021-06-15] MEDS: NPH, Human Insulin Isophane 300 UNIT/3 ML VIAL SC SCH (20:07)
[2021-06-16] MEDS: cefTRIAXone\\ROCEPHIN 2 GM in Sodium Chloride 0.9% 100 ML IVPB SCH (00:52)
[2021-06-16] MEDS: HumaLOG 300 UNITS/3 ML VIAL SC PRN ×5 (00:53→20:04)
[2021-06-16 05:47] LABS: #Eosinphils 0.1 thou/uL (0.0-0.7); #Lymphocytes 3.1 thou/uL (1.20-3.40); #Monocytes 0.7 thou/uL (0.11-0.59); #Neutrophils 4.5 thou/uL (1.40-6.50); %Basophils 0.4 % (0.0-1.0); %Eosinophils 1.5 % (0.0-10.0); %Lymphocytes 36.9 % (21.0-51.0); %Monocytes 8.1 % (0.0-10.0); %Neutrophils 53.1 % (42.0-75.0); Hemoglobin 11.4 g/dL (12.0-16.0); Mean Corpuscular HGB CONC 32.4 g/dL (32.0-36.0); Mean Corpuscular Volume 92.4 fL (78.0-98.0); Mean Platelet Volume 7.9 fL (7.4-10.4); Platelet Count 297 thou/uL (130-400); RBC Distribution Width 12.6 % (11.5-14.5); Red Blood Cell (RBC) Count 3.81 mill/uL (4.20-5.40); White Blood Cell (WBC) Count 8.5 thou/uL (4.8-10.8)
[2021-06-16 06:13] LABS: Anion Gap 11 mmol/L (10-20); BUN (Urea Nitrogen) 31 mg/dL (9.8-20.1); Calc. Creatinine Clearance 48 mL/min (70-130); Calcium 11.1 mg/dL (7.8-10.44); Carbon Dioxide 24 mmol/L (23-31); Chloride 102 mmol/L (98-107); Glucose 221 mg/dL (83-110); Potassium 4.2 mmol/L (3.5-5.1); Sodium 133 mmol/L (136-145)
[2021-06-16] MEDS: Famotidine 20 MG TAB PO SCH ×2 (09:57→20:04)
[2021-06-16] MEDS: Carvedilol 3.125 MG TAB PO SCH ×2 (09:57→20:04)
[2021-06-16] MEDS: Acetaminophen 500 MG TAB PO PRN (09:57)
[2021-06-16] MEDS: Cholecalciferol 1,000 UNITS (25 MCG) TAB PO SCH (09:57)
[2021-06-16] MEDS: Aspirin 81 mg Enteric Coated Tablet PO SCH (09:58)
[2021-06-16] MEDS: NPH, Human Insulin Isophane 300 UNIT/3 ML VIAL SC SCH ×2 (10:02→20:04)
[2021-06-16] MEDS: levETIRAcetam in NS 500 MG in Premix Bag 1 BAG IVPB SCH ×2 (10:02→20:04)
[2021-06-16] MEDS: Enoxaparin Sodium 40 MG/0.4 ML SYRINGE SC SCH (20:03)
[2021-06-16] MEDS: Atorvastatin Calcium 40 MG TAB PO SCH (20:04)
[2021-06-17] MEDS: HumaLOG 300 UNITS/3 ML VIAL SC PRN ×3 (00:25→17:57)
[2021-06-17] MEDS: cefTRIAXone\\ROCEPHIN 2 GM in Sodium Chloride 0.9% 100 ML IVPB SCH (01:12)
[2021-06-17 05:52] LABS: Anion Gap 10 mmol/L (10-20); BUN (Urea Nitrogen) 25 mg/dL (9.8-20.1); Calc. Creatinine Clearance 65 mL/min (70-130); Calcium 10.9 mg/dL (7.8-10.44); Carbon Dioxide 27 mmol/L (23-31); Chloride 103 mmol/L (98-107); Glucose 208 mg/dL (83-110); Potassium 4.7 mmol/L (3.5-5.1); Sodium 135 mmol/L (136-145)
[2021-06-17] MEDS: levETIRAcetam in NS 500 MG in Premix Bag 1 BAG IVPB SCH ×2 (08:45→20:52)
[2021-06-17] MEDS: Cholecalciferol 1,000 UNITS (25 MCG) TAB PO SCH (08:46)
[2021-06-17] MEDS: Famotidine 20 MG TAB PO SCH ×2 (08:46→20:42)
[2021-06-17] MEDS: Carvedilol 3.125 MG TAB PO SCH ×2 (08:46→20:43)
[2021-06-17] MEDS: Aspirin Chewable 81 MG TAB PER TUBE SCH (08:46)
[2021-06-17] MEDS ORDERED: NPH, Human Insulin Isophane 300 UNIT/3 ML VIAL SC SCH ×2 (09:00→13:46)
[2021-06-17 11:40] LABS: SARS-CoV-2 PCR by NAA Not Detected (NotDetected)
[2021-06-17] MEDS: Enoxaparin Sodium 40 MG/0.4 ML SYRINGE SC SCH (20:42)
[2021-06-17] MEDS: Atorvastatin Calcium 40 MG TAB PO SCH (20:43)
[2021-06-17] MEDS: NPH, Human Insulin Isophane 300 UNIT/3 ML VIAL SC SCH (20:51)
[2021-06-18] MEDS: cefTRIAXone\\ROCEPHIN 2 GM in Sodium Chloride 0.9% 100 ML IVPB SCH (02:30)
[2021-06-18] MEDS: HumaLOG 300 UNITS/3 ML VIAL SC PRN ×4 (05:50→18:12)
[2021-06-18 05:53] LABS: #Eosinphils 0.2 thou/uL (0.0-0.7); #Monocytes 0.8 thou/uL (0.11-0.59); #Neutrophils 5.2 thou/uL (1.40-6.50); %Basophils 0.5 % (0.0-1.0); %Eosinophils 2.2 % (0.0-10.0); %Lymphocytes 32.1 % (21.0-51.0); %Monocytes 8.8 % (0.0-10.0); %Neutrophils 56.4 % (42.0-75.0); Hemoglobin 11.6 g/dL (12.0-16.0); Mean Corpuscular Hemoglobin 30.5 pg (27.0-31.0); Mean Corpuscular Volume 92.5 fL (78.0-98.0); Mean Platelet Volume 8.5 fL (7.4-10.4); Platelet Count 268 thou/uL (130-400); RBC Distribution Width 12.7 % (11.5-14.5); White Blood Cell (WBC) Count 9.2 thou/uL (4.8-10.8)
[2021-06-18 06:02] LABS: Phosphorus 2.6 mg/dL (2.3-4.7)
[2021-06-18 06:04] LABS: Anion Gap 12 mmol/L (10-20); BUN (Urea Nitrogen) 21 mg/dL (9.8-20.1); Calc. Creatinine Clearance 68 mL/min (70-130); Carbon Dioxide 25 mmol/L (23-31); Chloride 99 mmol/L (98-107); Potassium 4.8 mmol/L (3.5-5.1); Sodium 131 mmol/L (136-145)
[2021-06-18 06:05] LABS: Calcium 11.1 mg/dL (7.8-10.44); Glucose 312 mg/dL (83-110); Magnesium 2.1 mg/dL (1.6-2.6)
[2021-06-18] MEDS: Carvedilol 3.125 MG TAB PO SCH ×2 (09:40→22:43)
[2021-06-18] MEDS: Cholecalciferol 1,000 UNITS (25 MCG) TAB PO SCH (09:40)
[2021-06-18] MEDS: Famotidine 20 MG TAB PO SCH ×2 (09:40→22:43)
[2021-06-18] MEDS: Aspirin Chewable 81 MG TAB PER TUBE SCH (09:40)
[2021-06-18] MEDS: levETIRAcetam in NS 500 MG in Premix Bag 1 BAG IVPB SCH (09:41)
[2021-06-18] MEDS: Scopolamine 1.5 mg/72 hour Patch TD SCH (12:43)
[2021-06-18] MEDS ORDERED: NPH, Human Insulin Isophane 300 UNIT/3 ML VIAL SC SCH (21:00)
[2021-06-18] MEDS: Polyethylene Glycol 3350 17 GM Packet PER TUBE SCH (22:43)
[2021-06-18] MEDS: Enoxaparin Sodium 40 MG/0.4 ML SYRINGE SC SCH (22:43)
[2021-06-18] MEDS: Atorvastatin Calcium 40 MG TAB PO SCH (22:43)
[2021-06-18] MEDS: levETIRAcetam 500 mg/5 ml Oral Solution PER TUBE SCH (22:43)
[2021-06-19] MEDS: HumaLOG 300 UNITS/3 ML VIAL SC PRN ×4 (01:24→18:44)
[2021-06-19 05:53] LABS: #Eosinphils 0.3 thou/uL (0.0-0.7); #Lymphocytes 2.8 thou/uL (1.20-3.40); #Monocytes 0.9 thou/uL (0.11-0.59); #Neutrophils 6.4 thou/uL (1.40-6.50); %Basophils 0.4 % (0.0-1.0); %Eosinophils 2.4 % (0.0-10.0); %Lymphocytes 27.2 % (21.0-51.0); %Monocytes 8.7 % (0.0-10.0); %Neutrophils 61.3 % (42.0-75.0); Hemoglobin 11.4 g/dL (12.0-16.0); Mean Corpuscular HGB CONC 31.8 g/dL (32.0-36.0); Mean Corpuscular Hemoglobin 29.5 pg (27.0-31.0); Mean Corpuscular Volume 92.9 fL (78.0-98.0); Mean Platelet Volume 8.4 fL (7.4-10.4); Platelet Count 273 thou/uL (130-400); RBC Distribution Width 12.6 % (11.5-14.5); Red Blood Cell (RBC) Count 3.86 mill/uL (4.20-5.40); White Blood Cell (WBC) Count 10.4 thou/uL (4.8-10.8)
[2021-06-19 06:03] LABS: Anion Gap 9 mmol/L (10-20); BUN (Urea Nitrogen) 24 mg/dL (9.8-20.1); Calc. Creatinine Clearance 64 mL/min (70-130); Carbon Dioxide 27 mmol/L (23-31); Chloride 101 mmol/L (98-107); Glucose 314 mg/dL (83-110); Potassium 5.1 mmol/L (3.5-5.1); Sodium 132 mmol/L (136-145)
[2021-06-19] MEDS ORDERED: NPH, Human Insulin Isophane 300 UNIT/3 ML VIAL SC SCH (09:00)
[2021-06-19] MEDS: NPH, Human Insulin Isophane 300 UNIT/3 ML VIAL SC SCH ×2 (10:54→21:44)
[2021-06-19] MEDS: levETIRAcetam 500 mg/5 ml Oral Solution PER TUBE SCH ×2 (10:54→21:43)
[2021-06-19] MEDS: Aspirin Chewable 81 MG TAB PER TUBE SCH (11:00)
[2021-06-19] MEDS: Cholecalciferol 1,000 UNITS (25 MCG) TAB PO SCH (11:00)
[2021-06-19] MEDS: Famotidine 20 MG TAB PO SCH ×2 (11:00→21:43)
[2021-06-19] MEDS: Carvedilol 3.125 MG TAB PO SCH (11:01)
[2021-06-19] MEDS: Carvedilol 6.25 MG TAB PER TUBE SCH (18:44)
[2021-06-19] MEDS: Acetaminophen 500 MG TAB PO PRN (18:45)
[2021-06-19] MEDS: Enoxaparin Sodium 40 MG/0.4 ML SYRINGE SC SCH (21:43)
[2021-06-19] MEDS: Atorvastatin Calcium 40 MG TAB PO SCH (21:43)
[2021-06-19] MEDS: Polyethylene Glycol 3350 17 GM Packet PER TUBE SCH (21:44)
[2021-06-20 05:24] LABS: #Basophils 0.1 thou/uL (0.0-0.2); #Eosinphils 0.2 thou/uL (0.0-0.7); #Lymphocytes 2.9 thou/uL (1.20-3.40); #Monocytes 0.9 thou/uL (0.11-0.59); #Neutrophils 6.1 thou/uL (1.40-6.50); %Basophils 0.6 % (0.0-1.0); %Eosinophils 2.3 % (0.0-10.0); %Lymphocytes 28.5 % (21.0-51.0); %Monocytes 8.9 % (0.0-10.0); %Neutrophils 59.8 % (42.0-75.0); Mean Corpuscular HGB CONC 32.2 g/dL (32.0-36.0); Mean Corpuscular Volume 93.1 fL (78.0-98.0); Mean Platelet Volume 8.4 fL (7.4-10.4); Platelet Count 278 thou/uL (130-400); RBC Distribution Width 12.9 % (11.5-14.5); Red Blood Cell (RBC) Count 4.35 mill/uL (4.20-5.40); White Blood Cell (WBC) Count 10.2 thou/uL (4.8-10.8)
[2021-06-20 05:37] LABS: Anion Gap 13 mmol/L (10-20); BUN (Urea Nitrogen) 25 mg/dL (9.8-20.1); Calc. Creatinine Clearance 61 mL/min (70-130); Calcium 11.8 mg/dL (7.8-10.44); Carbon Dioxide 25 mmol/L (23-31); Chloride 101 mmol/L (98-107); Glucose 297 mg/dL (83-110); Magnesium 2.3 mg/dL (1.6-2.6); Phosphorus 2.8 mg/dL (2.3-4.7); Sodium 134 mmol/L (136-145)
[2021-06-20] MEDS: Aspirin Chewable 81 MG TAB PER TUBE SCH (09:44)
[2021-06-20] MEDS: Carvedilol 6.25 MG TAB PER TUBE SCH ×2 (09:44→18:19)
[2021-06-20] MEDS: levETIRAcetam 500 mg/5 ml Oral Solution PER TUBE SCH ×2 (09:45→21:16)
[2021-06-20] MEDS: Famotidine 20 MG TAB PO SCH ×2 (09:45→21:16)
[2021-06-20] MEDS: Cholecalciferol 1,000 UNITS (25 MCG) TAB PO SCH (09:45)
[2021-06-20] MEDS: NPH, Human Insulin Isophane 300 UNIT/3 ML VIAL SC SCH ×2 (09:50→21:16)
[2021-06-20] MEDS: HumaLOG 300 UNITS/3 ML VIAL SC PRN ×3 (13:12→21:15)
[2021-06-20] MEDS: Enoxaparin Sodium 40 MG/0.4 ML SYRINGE SC SCH (21:16)
[2021-06-20] MEDS: Atorvastatin Calcium 40 MG TAB PO SCH (21:16)
[2021-06-20] MEDS: Polyethylene Glycol 3350 17 GM Packet PER TUBE SCH (22:42)
[2021-06-21 06:37] LABS: Anion Gap 13 mmol/L (10-20); BUN (Urea Nitrogen) 28 mg/dL (9.8-20.1); Calc. Creatinine Clearance 62 mL/min (70-130); Carbon Dioxide 26 mmol/L (23-31); Chloride 99 mmol/L (98-107); Glucose 166 mg/dL (83-110); Potassium 4.7 mmol/L (3.5-5.1); Sodium 133 mmol/L (136-145)
[2021-06-21 06:39] LABS: Hemoglobin 13.7 g/dL (12.0-16.0); Lymphocytes 28 % (21-51); MDiff Complete? YES; Mean Corpuscular HGB CONC 33.7 g/dL (32.0-36.0); Mean Corpuscular Hemoglobin 31.5 pg (27.0-31.0); Mean Corpuscular Volume 93.4 fL (78.0-98.0); Mean Platelet Volume 8.9 fL (7.4-10.4); Monocytes 13 % (0-10); Neutrophil 59 % (42-75); Platelet Count 257 thou/uL (130-400); Platelet Morphology Comment Appears Adequate; RBC Distribution Width 12.8 % (11.5-14.5); RBC Morphology Normal; Red Blood Cell (RBC) Count 4.36 mill/uL (4.20-5.40); White Blood Cell (WBC) Count 11.5 thou/uL (4.8-10.8)
[2021-06-21 06:43] LABS: Calcium 12.2 mg/dL (7.8-10.44)
[2021-06-21] MEDS ORDERED: Sodium Chloride 0.9% 500 ML IV SCH ×2 (07:45→08:30)
[2021-06-21] MEDS ORDERED: Furosemide 40 MG/4 ML VIAL SLOW IVP SCH (07:45)
[2021-06-21] MEDS: Cholecalciferol 1,000 UNITS (25 MCG) TAB PO SCH (08:11)
[2021-06-21] MEDS: Famotidine 20 MG TAB PO SCH ×2 (08:11→21:11)
[2021-06-21] MEDS: Carvedilol 6.25 MG TAB PER TUBE SCH ×2 (08:11→16:14)
[2021-06-21] MEDS: levETIRAcetam 500 mg/5 ml Oral Solution PER TUBE SCH ×2 (08:12→21:11)
[2021-06-21] MEDS: NPH, Human Insulin Isophane 300 UNIT/3 ML VIAL SC SCH ×3 (08:15→21:12)
[2021-06-21] MEDS ORDERED: Fentanyl 100 MCG/2 ML VIAL ONE (12:39)
[2021-06-21] MEDS ORDERED: Lidocaine 1% PF 5 ML VIAL ONE (12:55)
[2021-06-21] MEDS ORDERED: PROPOFOL 200 MG/20 ML VIAL ONE (12:55)
[2021-06-21] MEDS: Scopolamine 1.5 mg/72 hour Patch TD SCH (15:34)
[2021-06-21] MEDS: HumaLOG 300 UNITS/3 ML VIAL SC PRN (16:29)
[2021-06-21] MEDS: Aspirin Chewable 81 MG TAB PER TUBE SCH (21:11)
[2021-06-21] MEDS: Atorvastatin Calcium 40 MG TAB PO SCH (21:11)
[2021-06-21] MEDS: Polyethylene Glycol 3350 17 GM Packet PER TUBE SCH (21:11)
[2021-06-22 05:08] LABS: #Eosinphils 0.2 thou/uL (0.0-0.7); #Lymphocytes 2.5 thou/uL (1.20-3.40); #Monocytes 0.7 thou/uL (0.11-0.59); #Neutrophils 7.3 thou/uL (1.40-6.50); %Basophils 0.4 % (0.0-1.0); %Eosinophils 1.4 % (0.0-10.0); %Lymphocytes 23.2 % (21.0-51.0); %Monocytes 6.9 % (0.0-10.0); %Neutrophils 68.1 % (42.0-75.0); Hemoglobin 11.6 g/dL (12.0-16.0); Mean Corpuscular HGB CONC 32.8 g/dL (32.0-36.0); Mean Corpuscular Hemoglobin 30.7 pg (27.0-31.0); Mean Corpuscular Volume 93.6 fL (78.0-98.0); Mean Platelet Volume 8.3 fL (7.4-10.4); Platelet Count 283 thou/uL (130-400); RBC Distribution Width 12.8 % (11.5-14.5); Red Blood Cell (RBC) Count 3.77 mill/uL (4.20-5.40); White Blood Cell (WBC) Count 10.6 thou/uL (4.8-10.8)
[2021-06-22 05:32] LABS: Anion Gap 12 mmol/L (10-20); BUN (Urea Nitrogen) 32 mg/dL (9.8-20.1); Calc. Creatinine Clearance 54 mL/min (70-130); Calcium 11.6 mg/dL (7.8-10.44); Carbon Dioxide 28 mmol/L (23-31); Chloride 101 mmol/L (98-107); Glucose 254 mg/dL (83-110); Potassium 4.8 mmol/L (3.5-5.1); Sodium 136 mmol/L (136-145)
[2021-06-22] MEDS: HumaLOG 300 UNITS/3 ML VIAL SC PRN ×3 (06:16→18:28)
[2021-06-22] MEDS: Carvedilol 6.25 MG TAB PER TUBE SCH ×2 (10:52→16:37)
[2021-06-22] MEDS: levETIRAcetam 500 mg/5 ml Oral Solution PER TUBE SCH ×2 (10:52→21:06)
[2021-06-22] MEDS: Cholecalciferol 1,000 UNITS (25 MCG) TAB PO SCH (10:52)
[2021-06-22] MEDS: Famotidine 20 MG TAB PO SCH ×2 (10:52→21:06)
[2021-06-22] MEDS: Aspirin Chewable 81 MG TAB PER TUBE SCH (10:52)
[2021-06-22] MEDS: NPH, Human Insulin Isophane 300 UNIT/3 ML VIAL SC SCH ×2 (10:52→21:06)
[2021-06-22] MEDS: Polyethylene Glycol 3350 17 GM Packet PER TUBE SCH (21:06)
[2021-06-22] MEDS: Atorvastatin Calcium 40 MG TAB PO SCH (21:06)
[2021-06-23] MEDS: Famotidine 20 MG TAB PO SCH ×2 (08:54→21:40)
[2021-06-23] MEDS: levETIRAcetam 500 mg/5 ml Oral Solution PER TUBE SCH ×2 (08:54→21:40)
[2021-06-23] MEDS: Aspirin Chewable 81 MG TAB PER TUBE SCH (08:54)
[2021-06-23] MEDS: Carvedilol 6.25 MG TAB PER TUBE SCH ×2 (08:54→16:53)
[2021-06-23] MEDS: Cholecalciferol 1,000 UNITS (25 MCG) TAB PO SCH (08:54)
[2021-06-23] MEDS: NPH, Human Insulin Isophane 300 UNIT/3 ML VIAL SC SCH ×2 (08:59→21:41)
[2021-06-23 09:07] LABS: Anion Gap 14 mmol/L (10-20); BUN (Urea Nitrogen) 33 mg/dL (9.8-20.1); Calc. Creatinine Clearance 59 mL/min (70-130); Carbon Dioxide 27 mmol/L (23-31); Chloride 100 mmol/L (98-107); Potassium 4.6 mmol/L (3.5-5.1); Sodium 136 mmol/L (136-145)
[2021-06-23 09:08] LABS: Glucose 234 mg/dL (83-110)
[2021-06-23 09:15] LABS: Hemoglobin 12.9 g/dL (12.0-16.0); Mean Corpuscular HGB CONC 31.7 g/dL (32.0-36.0); Mean Corpuscular Hemoglobin 29.7 pg (27.0-31.0); Mean Corpuscular Volume 93.6 fL (78.0-98.0); Mean Platelet Volume 9.1 fL (7.4-10.4); Platelet Count 266 thou/uL (130-400); RBC Distribution Width 12.8 % (11.5-14.5); Red Blood Cell (RBC) Count 4.36 mill/uL (4.20-5.40); White Blood Cell (WBC) Count 8.1 thou/uL (4.8-10.8)
[2021-06-23] MEDS: HumaLOG 300 UNITS/3 ML VIAL SC PRN ×2 (12:24→17:24)
[2021-06-23 12:25] LABS: Eosinophils 1 % (0-10); Lymphocytes 12 % (21-51); MDiff Complete? YES; Monocytes 16 % (0-10); Neutrophil 70 % (42-75); Platelet Morphology Comment Appears Adequate; Vacuoles SLIGHT
[2021-06-23] MEDS ORDERED: Fluconazole 100 MG TAB PO STA (13:35)
[2021-06-23] MEDS: Polyethylene Glycol 3350 17 GM Packet PER TUBE SCH (21:40)
[2021-06-23] MEDS: Atorvastatin Calcium 40 MG TAB PO SCH (21:40)
[2021-06-24] MEDS: Cholecalciferol 1,000 UNITS (25 MCG) TAB PO SCH (09:18)
[2021-06-24] MEDS: glipiZIDE 5 MG TAB PO SCH (09:18)
[2021-06-24] MEDS: Carvedilol 6.25 MG TAB PER TUBE SCH ×2 (09:18→16:50)
[2021-06-24] MEDS: Aspirin Chewable 81 MG TAB PER TUBE SCH (09:18)
[2021-06-24] MEDS: Famotidine 20 MG TAB PO SCH ×2 (09:18→22:03)
[2021-06-24] MEDS: levETIRAcetam 500 mg/5 ml Oral Solution PER TUBE SCH ×2 (09:18→22:02)
[2021-06-24] MEDS: Fluconazole 100 MG TAB PO SCH (09:18)
[2021-06-24] MEDS: NPH, Human Insulin Isophane 300 UNIT/3 ML VIAL SC SCH ×2 (09:28→22:02)
[2021-06-24] MEDS: Scopolamine 1.5 mg/72 hour Patch TD SCH (12:51)
[2021-06-24] MEDS: HumaLOG 300 UNITS/3 ML VIAL SC PRN ×3 (12:52→22:02)
[2021-06-24] MEDS: Atorvastatin Calcium 40 MG TAB PO SCH (22:03)
[2021-06-24] MEDS: Polyethylene Glycol 3350 17 GM Packet PER TUBE SCH (22:03)
[2021-06-24 23:01] LABS: SARS-CoV-2 PCR by NAA Not Detected (NotDetected)
[2021-06-25] MEDS: HumaLOG 300 UNITS/3 ML VIAL SC PRN ×3 (06:12→18:29)
[2021-06-25 08:15] LABS: #Eosinphils 0.1 thou/uL (0.0-0.7); #Lymphocytes 1.7 thou/uL (1.20-3.40); #Monocytes 0.7 thou/uL (0.11-0.59); #Neutrophils 3.5 thou/uL (1.40-6.50); %Basophils 0.5 % (0.0-1.0); %Eosinophils 2.2 % (0.0-10.0); %Lymphocytes 28.5 % (21.0-51.0); %Monocytes 10.6 % (0.0-10.0); %Neutrophils 58.2 % (42.0-75.0); Hemoglobin 10.9 g/dL (12.0-16.0); Mean Corpuscular HGB CONC 32.7 g/dL (32.0-36.0); Mean Corpuscular Hemoglobin 30.3 pg (27.0-31.0); Mean Corpuscular Volume 92.7 fL (78.0-98.0); Mean Platelet Volume 8.7 fL (7.4-10.4); Platelet Count 258 thou/uL (130-400); RBC Distribution Width 12.5 % (11.5-14.5); White Blood Cell (WBC) Count 6.1 thou/uL (4.8-10.8)
[2021-06-25 08:36] LABS: Anion Gap 12 mmol/L (10-20); BUN (Urea Nitrogen) 27 mg/dL (9.8-20.1); Calc. Creatinine Clearance 62 mL/min (70-130); Calcium 11.4 mg/dL (7.8-10.44); Carbon Dioxide 26 mmol/L (23-31); Chloride 101 mmol/L (98-107); Glucose 269 mg/dL (83-110); Potassium 4.5 mmol/L (3.5-5.1); Sodium 134 mmol/L (136-145)
[2021-06-25] MEDS: Famotidine 20 MG TAB PO SCH ×2 (10:29→20:43)
[2021-06-25] MEDS: Carvedilol 6.25 MG TAB PER TUBE SCH ×2 (10:29→18:18)
[2021-06-25] MEDS: glipiZIDE 5 MG TAB PO SCH (10:29)
[2021-06-25] MEDS: levETIRAcetam 500 mg/5 ml Oral Solution PER TUBE SCH ×2 (10:29→20:44)
[2021-06-25] MEDS: Aspirin Chewable 81 MG TAB PER TUBE SCH (10:29)
[2021-06-25] MEDS: Fluconazole 100 MG TAB PO SCH (10:30)
[2021-06-25] MEDS: NPH, Human Insulin Isophane 300 UNIT/3 ML VIAL SC SCH ×2 (10:33→20:44)
[2021-06-25] MEDS: Cholecalciferol 1,000 UNITS (25 MCG) TAB PO SCH (10:33)
[2021-06-25 13:35] VITALS: BMI 34.3
[2021-06-25] MEDS: Polyethylene Glycol 3350 17 GM Packet PER TUBE SCH (20:44)
[2021-06-25] MEDS: Atorvastatin Calcium 40 MG TAB PO SCH (20:44)
[2021-06-25 21:07] LABS: Albumin-Ur 64.4 % (.); Alpha 1 - Ur 4.2 % (.); Alpha 2 - Ur 11.2 % (.); Beta-Ur 13.1 % (.); M-Spike,% Not Observed % (Not Observed)
[2021-06-25 21:07] LABS: A/G Ratio 0.7 (0.7-1.7); Alpha 1 0.4 g/dL (0.0-0.4); Beta 1.1 g/dL (0.7-1.3); Gamma 1.8 g/dL (0.4-1.8); Globulin, Total 4.3 g/dL (2.2-3.9); M-Spike Not Observed g/dL (Not Observed)
[2021-06-26] MEDS: HumaLOG 300 UNITS/3 ML VIAL SC PRN ×2 (00:27→18:24)
[2021-06-26 04:12] LABS: Kappa/Lambda Ratio 12.03 (1.03-31.76)
[2021-06-26] MEDS: Cholecalciferol 1,000 UNITS (25 MCG) TAB PO SCH (09:15)
[2021-06-26] MEDS: levETIRAcetam 500 mg/5 ml Oral Solution PER TUBE SCH ×2 (09:15→22:30)
[2021-06-26] MEDS: Aspirin Chewable 81 MG TAB PER TUBE SCH (09:15)
[2021-06-26] MEDS: glipiZIDE 5 MG TAB PO SCH (09:15)
[2021-06-26] MEDS: NPH, Human Insulin Isophane 300 UNIT/3 ML VIAL SC SCH ×2 (09:15→22:30)
[2021-06-26] MEDS: Famotidine 20 MG TAB PO SCH ×2 (09:15→22:29)
[2021-06-26] MEDS: Carvedilol 6.25 MG TAB PER TUBE SCH ×2 (09:15→17:57)
[2021-06-26] MEDS: Fluconazole 100 MG TAB PO SCH (09:15)
[2021-06-26] MEDS: Atorvastatin Calcium 40 MG TAB PO SCH (22:29)
[2021-06-26] MEDS: Polyethylene Glycol 3350 17 GM Packet PER TUBE SCH (22:31)
[2021-06-27] MEDS: Carvedilol 6.25 MG TAB PER TUBE SCH (09:56)
[2021-06-27] MEDS: Famotidine 20 MG TAB PO SCH (09:56)
[2021-06-27] MEDS: Aspirin Chewable 81 MG TAB PER TUBE SCH (09:56)
[2021-06-27] MEDS: Cholecalciferol 1,000 UNITS (25 MCG) TAB PO SCH (09:56)
[2021-06-27] MEDS: NPH, Human Insulin Isophane 300 UNIT/3 ML VIAL SC SCH (09:57)
[2021-06-27] MEDS: levETIRAcetam 500 mg/5 ml Oral Solution PER TUBE SCH (09:57)
[2021-06-27] MEDS: glipiZIDE 5 MG TAB PO SCH (09:57)
[2021-06-27 11:56] VITALS: BP 131/70; TEMP 98.4
== END 2021-06-27 13:20 | DRG 65 ==
LOC: ERS 00:19 → ERHOLD 02:47 → 2SE 16:59 → OBSVTOIN 06-11 15:42 → 3SE 06-12 09:37 → 2SE 06-12 09:46 → 3SE 06-12 11:06
PROVIDERS: ADMIT Internal Medicine; ATTEND Internal Medicine
PROC: 0DH63UZ Insertion of Feeding Device into Stomach, Percutaneous Approach (ICD-10-PCS; principal; 2021-06-21)
PROC: 0DB68ZX Excision of Stomach, Via Natural or Artificial Opening Endoscopic, Diagnostic (ICD-10-PCS; 2021-06-21)
PROC: 3E0G76Z Introduction of Nutritional Substance into Upper GI, Via Natural or Artificial Opening (ICD-10-PCS; 2021-06-21)
DX: I63.9 Cerebral infarction, unspecified (principal); G81.94 Hemiplegia, unspecified affecting left nondominant side; N39.0 Urinary tract infection, site not specified; G93.49 Other encephalopathy; I50.22 Chronic systolic (congestive) heart failure; I13.0 Hypertensive heart and chronic kidney disease with heart failure and stage 1 through stage 4 chronic kidney disease, or unspecified chronic kidney disease; N17.9 Acute kidney failure, unspecified; E87.1 Hypo-osmolality and hyponatremia; R29.810 Facial weakness; E66.9 Obesity, unspecified; I25.5 Ischemic cardiomyopathy; R13.10 Dysphagia, unspecified; E78.5 Hyperlipidemia, unspecified; E21.0 Primary hyperparathyroidism; E11.69 Type 2 diabetes mellitus with other specified complication; B96.20 Unspecified Escherichia coli [E. coli] as the cause of diseases classified elsewhere; R47.01 Aphasia; E11.22 Type 2 diabetes mellitus with diabetic chronic kidney disease; K25.9 Gastric ulcer, unspecified as acute or chronic, without hemorrhage or perforation; R79.89 Other specified abnormal findings of blood chemistry; R13.12 Dysphagia, oropharyngeal phase; N18.2 Chronic kidney disease, stage 2 (mild); Z20.822 Contact with and (suspected) exposure to COVID-19; Z79.82 Long term (current) use of aspirin; Z79.899 Other long term (current) drug therapy; Z86.73 Personal history of transient ischemic attack (TIA), and cerebral infarction without residual deficits; Z68.33 Body mass index [BMI] 33.0-33.9, adult; Z95.810 Presence of automatic (implantable) cardiac defibrillator; Z90.710 Acquired absence of both cervix and uterus; Z79.4 Long term (current) use of insulin
CPT/HCPCS: 36415; 36416; 70450; 70496; 70498; 71045; 74018; 80048; 80053; 80061; 81003; 81015; 83036; 83735; 83880; 83883; 84100; 84165; 84166; 85025; 85610; 85730; 87077; 87086; 87186; 88305; 88312; 93005; 93306; 95712; 95819; 95957; 96365; 96366; G0378; J0690; J0696; J1650; J1815; J1940; J1953; J2704; J3010; J3490; J7050; Q9967; U0002; U0003; U0005

== ENCOUNTER 2021-07-26 20:29 | Observation (INO) | payer MEDICARE ==
[~2021-07-26 20:29] MED LIST changes: +GASTROGRAFIN 30 ML BOT ONE; -ISOVUE-370 76%-LOCM 1 ML ONE; +Iopamidol-370 76% 500 ML 1 ML ONE
[2021-07-27 00:25] LABS: #Eosinphils 0.2 thou/uL (0.0-0.7); #Lymphocytes 3.4 thou/uL (1.20-3.40); #Monocytes 0.6 thou/uL (0.11-0.59); #Neutrophils 4.1 thou/uL (1.40-6.50); %Basophils 0.4 % (0.0-1.0); %Eosinophils 2.7 % (0.0-10.0); %Lymphocytes 40.3 % (21.0-51.0); %Monocytes 7.2 % (0.0-10.0); %Neutrophils 49.4 % (42.0-75.0); Hemoglobin 9.5 g/dL (12.0-16.0); Mean Corpuscular HGB CONC 32.4 g/dL (32.0-36.0); Mean Corpuscular Hemoglobin 30.4 pg (27.0-31.0); Platelet Count 296 thou/uL (130-400); RBC Distribution Width 13.7 % (11.5-14.5); Red Blood Cell (RBC) Count 3.13 mill/uL (4.20-5.40); White Blood Cell (WBC) Count 8.3 thou/uL (4.8-10.8)
[2021-07-27 00:28] LABS: ALT (SGPT) 20 U/L (8-55); AST (SGOT) 17 U/L (5-34); Albumin 2.7 g/dL (3.4-4.8); Alkaline Phosphatase 95 U/L (40-110); BUN (Urea Nitrogen) 23 mg/dL (9.8-20.1); Bilirubin, Total 0.5 mg/dL (0.2-1.2); Calc. Creatinine Clearance 0 mL/min (70-130); Calcium 10.6 mg/dL (7.8-10.44); Carbon Dioxide 27 mmol/L (23-31); Chloride 112 mmol/L (98-107); Globulin 3.4 g/dL (2.4-3.5); Glucose 85 mg/dL (83-110); Potassium 4.1 mmol/L (3.5-5.1); Protein, Total 6.1 g/dL (5.8-8.1); Sodium 143 mmol/L (136-145)
[2021-07-27 00:36] LABS: Anion Gap 8 mmol/L (10-20)
[2021-07-27] MEDS ORDERED: Ondansetron PF 4 MG/2 ML Vial IVP PRN (00:40)
[2021-07-27] MEDS ORDERED: Ondansetron ODT 4 MG TAB PO PRN (00:40)
[2021-07-27] MEDS ORDERED: Acetaminophen 650 MG Suppository PR PRN (00:40)
[2021-07-27] MEDS ORDERED: Acetaminophen 325 MG TAB PO PRN (00:40)
[2021-07-27] MEDS ORDERED: Senokot S 8.6-50 MG TAB PO PRN (00:40)
[2021-07-27] MEDS ORDERED: Calcium Carbonate 500 MG ChewTAB PO PRN (00:40)
[2021-07-27] MEDS ORDERED: Polyethylene Glycol 3350 17 GM Packet PER TUBE PRN ×2 (01:19→01:51)
[2021-07-27] MEDS ORDERED: Dextrose 50% Abboject 50 ML SYRINGE IVP PRN (01:30)
[2021-07-27] MEDS ORDERED: Dextrose 5% in Water 1,000 ML IV PRN ×2 (01:30→02:09)
[2021-07-27] MEDS ORDERED: Dextrose 50% Abboject 50 ML SYRINGE SLOW IVP PRN (02:09)
[2021-07-27 03:20] LABS: SARS-CoV-2 NAA Rapid Test Not Detected (NotDetected)
[2021-07-27] MEDS: Lactated Ringer's 1,000 ML IV SCH ×2 (03:45→12:58)
[2021-07-27] MEDS: Carvedilol 6.25 MG TAB PER TUBE SCH ×2 (07:29→16:57)
[2021-07-27] MEDS ORDERED: glipiZIDE 5 MG TAB PER TUBE SCH (07:30)
[2021-07-27 08:20] VITALS: BMI 31.1
[2021-07-27] MEDS ORDERED: FLU VACC QS2021-22(65YR UP)/PF 240 MCG/0.7 ML SYRINGE IM ONE (09:00)
[2021-07-27] MEDS ORDERED: Polyethylene Glycol 3350 17 GM Packet PER TUBE SCH (09:00)
[2021-07-27] MEDS ORDERED: Cholecalciferol 1,000 UNITS (25 MCG) TAB PER TUBE SCH (09:00)
[2021-07-27] MEDS ORDERED: levETIRAcetam 500 mg/5 ml Oral Solution PER TUBE SCH (09:00)
[2021-07-27] MEDS ORDERED: Aspirin Chewable 81 MG TAB PER TUBE SCH (09:00)
[2021-07-27] MEDS ORDERED: NPH, Human Insulin Isophane 300 UNIT/3 ML VIAL SC SCH ×2 (09:00→21:00)
[2021-07-27] MEDS ORDERED: Bisacodyl 10 MG SUPP PR SCH (10:30)
[2021-07-27 10:45] LABS: INR-International Normal Ratio 1.7; Prothrombin Time 19.8 sec (12.0-14.7)
[2021-07-27] MEDS ORDERED: Ketamine 50 MG/ML (10ML VIAL) ONE (12:21)
[2021-07-27] MEDS ORDERED: PROPOFOL 200 MG/20 ML VIAL ONE (12:30)
[2021-07-27] MEDS ORDERED: ceFAZolin Sodium/D5W 2 GM in Premix Bag 1 BAG IVPB SCH (14:15)
[2021-07-27 17:02] VITALS: BP 138/83; TEMP 97.4
[2021-07-27] MEDS ORDERED: Atorvastatin Calcium 40 MG TAB PER TUBE SCH (21:00)
== END 2021-07-27 18:28 ==
LOC: ERS 20:29 → T4-A 07-27 00:09
PROVIDERS: ADMIT Family Medicine; ATTEND Family Medicine
PROC: 0DH63UZ Insertion of Feeding Device into Stomach, Percutaneous Approach (ICD-10-PCS; principal; 2021-07-27)
DX: K94.23 Gastrostomy malfunction (principal); I11.0 Hypertensive heart disease with heart failure; I50.42 Chronic combined systolic (congestive) and diastolic (congestive) heart failure; E78.5 Hyperlipidemia, unspecified; I25.5 Ischemic cardiomyopathy; E11.9 Type 2 diabetes mellitus without complications; I69.320 Aphasia following cerebral infarction; E66.3 Overweight; Z68.31 Body mass index [BMI] 31.0-31.9, adult; Z79.01 Long term (current) use of anticoagulants; Z79.4 Long term (current) use of insulin; Z79.82 Long term (current) use of aspirin; Z79.84 Long term (current) use of oral hypoglycemic drugs; Z79.899 Other long term (current) drug therapy; Z20.822 Contact with and (suspected) exposure to COVID-19
CPT/HCPCS: 43246; 74018; 74177; 80053; 82962; 85025; 85610; U0002; 36415; 36416; 96374; G0378; J1815; J2704; J7120; Q9963; Q9967